=== PATIENT | female | born 1960 | race Caucasian/White ===

== ENCOUNTER 2016-09-04 13:49 | Emergency (ER) | payer BC ==
--- NOTE | 2016-09-04 15:11 | UC ---
Young Herrera Aidan, scribed for Ludivina Costello MD on 09/04/16 at 1444 . Ear Complaint HPI - HPI Summary HPI Summary: 55 y/o female presents to the Urgent Care with a complaint of acute, constant, aevhewln-uw-yiquoa (8/10) ear pressure/pain that began 6 weeks ago. The pain is not alleviated by Ibuprofen. Associated symptoms include sinus pressure and nasal congestion that is only slightly alleviated by Mucinex-D and Flonase. Roughly a month ago, she had a CT-scan that showed clear sinuses, but fluid in her ears. She was given an allergy shot, which actually aggravated her symptoms. Pt is allergic to Bactrim, Levaquin, and cephalosporin. She is actively using a Netti-Pot, flonase and azelastine. Pt had ENT care with Dr. Lyn and no longer wants to go to that office and she has an appointment with Dr. Hart on September 20, 2016. Pt is an established pt of Dr. Hart. - History of Current Complaint Chief Complaint: UC Stated Complaint: SINUS CONGESTION, AND EAR ACHE Time Seen by Provider: 09/04/16 14:25 Hx Obtained From: Patient Hx Last Menstrual Period: 55 y/o female ?: No Onset/Duration: Gradual Onset, Lasting Weeks, Still Present Severity Initially: Moderate Severity Currently: Moderate Pain Intensity: 8 - ear pain Pain Scale Used: 0-10 Numeric Aggravating Factors: Nothing - a flu shot aggravated her symptoms Alleviating Factors: Nothing Associated Signs/Symptoms: Positive: Hearing Loss, URI Symptoms Related History: Seasonal Allergies - Allergies/Home Medications Allergies/Adverse Reactions: Allergies Allergy/AdvReac Type Severity Reaction Status Date / Time Cephalosporins Allergy Joint Pain Verified 09/04/16 14:28 Levofloxacin [From Levaquin] Allergy Rash Verified 09/04/16 14:28 Sulfamethoxazole Allergy Rash Verified 09/04/16 14:28 w/Trimethoprim [From Bactrim] Home Medications: Home Medications Acetaminophen [Tylenol] 325 mg PO Q4H PRN 09/04/16 [History Confirmed 09/04/16] Azelastine 0.15% NASAL(NF) [Astepro 0.15% NASAL (NF)] 1 spray NASAL BID [History Confirmed 09/04/16] Escitalopram Oxalate [Lexapro] 20 mg PO DAILY 09/04/16 [History Confirmed ] Fluticasone NASAL SPRAY 50MCG* [Flonase NASAL SPRAY 50MCG*] 09/04/16 [History] Ibuprofen [Advil] 400 mg PO Q6H PRN 09/04/16 [History Confirmed 09/04/16] Pseudoephedrine-Guaifenesin [Mucinex D 60-600 mg] 1 tab PO BID 09/04/16 [ History Confirmed 09/04/16] PMH/Surg Hx/FS Hx/Imm Hx Respiratory History Of: Reports: Asthma - Surgical History Surgical History: Yes Surgery Procedure, Year, and Place: Ovary removed Other Surgical History: Tonsillectomy, Ovary removal - Family History Known Family History: Positive: Other - allergies - Social History Occupation: Employed Full-time Lives: Alone Alcohol Use: Rare Substance Use Type: None Smoking Status (MU): Never Smoked Tobacco - Immunization History Most Recent Influenza Vaccination: none Review of Systems Constitutional: Negative Skin: Negative Eyes: Negative ENT: Ear Ache, Other - nasal congestion, sinus pressure Respiratory: Negative Cardiovascular: Negative Gastrointestinal: Negative Genitourinary: Negative Motor: Negative Neurovascular: Negative Musculoskeletal: Negative Neurological: Negative Psychological: Negative All Other Systems Reviewed And Are Negative: Yes Physical Exam Triage Information Reviewed: Yes Appearance: Well-Appearing, Well-Nourished, Pain Distress Vital Signs: Initial Vital Signs Temp 99.9 F 09/04/16 14:30 Pulse 72 09/04/16 14:30 Resp 16 09/04/16 14:30 BP 153/109 09/04/16 14:30 Pulse Ox 98 09/04/16 14:30 Vital Signs Reviewed: Yes Eyes: Positive: Conjunctiva Clear ENT: Positive: Normal ENT inspection, Pharynx normal. Negative: TMs normal - fluid behind both ear drums Neck: Positive: Supple Respiratory: Positive: Lungs clear, Normal breath sounds, No respiratory distress Cardiovascular: Positive: RRR, No Murmur, Pulses Normal, Brisk Capillary Refill Musculoskeletal: Positive: Strength Intact, ROM Intact Neurological: Positive: Alert, Muscle Tone Normal Psychological Exam: Normal Skin Exam: Normal Ear Complaint Course/Dx - Course Course Of Treatment: 55 y/o female presents with acute, constant, moderate-to- severe (8/10) ear pressure/pain that began 6 weeks ago. The pain is not alleviated by Ibuprofen. Associated symptoms include sinus pressure and nasal congestion that is only slightly alleviated by Mucinex-D and Flonase. Roughly a month ago, she had a CT-scan that showed clear sinuses, but fluid in her ears. She was given allergy shots, which actually aggravated her symptoms. Pt is allergic to Bactrim, Levaquin, and cephalosporin. She is actively using a Netti- Pot. Dr. Costello will give a taper of steroids and trial of the antibiotic until she can be seen by Dr. Hart. - Differential Dx/Diagnosis Differential Diagnosis/HQI/PQRI: Otitis Externa, Otitis Media, URI, Other - sinusitis Provider Diagnoses: sinusitis Discharge - Discharge Plan Condition: Stable Disposition: HOME Prescriptions: Amoxicillin/Clavulanate TAB* [Augmentin TAB 875*] 875 mg PO BID #28 tab predniSONE TAB* [Deltasone TAB*] 10 mg PO SEE INSTRUCTIONS #30 tab Patient Education Materials: Sinusitis (ED) Additional Instructions: Dr. Costello arranged a sooner appointment with Dr. Hart, where you have already established you want your ENT care. Your appointment is now September 15Sunday at 12:45pm. The documentation as recorded by the Young berman Aidan accurately reflects the service I personally performed and the decisions made by , Ludivina Costello MD.
[2016-09-04 15:14] VITALS: BP 153/79
== END 2016-09-04 15:06 | disposition home or self-care (01) ==
LOC: UCEAST 13:49 → MERGE 13:49 → UCEAST 15:06
DX: J32.9 Chronic sinusitis, unspecified (principal); Z88.1 Allergy status to other antibiotic agents; Z88.2 Allergy status to sulfonamides; Z88.8 Allergy status to other drugs, medicaments and biological substances
CPT/HCPCS: 99202; G0463

== ENCOUNTER 2016-11-12 21:14 | Emergency (ER) | payer BC ==
[2016-11-12 21:31] VITALS: BP 138/76
--- NOTE | 2016-11-12 22:33 | UC ---
Respiratory Complaint HPI - HPI Summary HPI Summary: The patient comes in today for: 1. Sinus congestion: Onset: 6 weeks of sinus congestion. Palliative/provocative: Nebulizer helps. Rubber chips, Quality: Pressure. Region: Front/forehead. Severity: 01/22 Time: Constant. Associated symptoms: Rhinitis: white mucous. Upper tooth pain: None. Fevers: None Cough: "a little bit." non-productive. Itchy eyes. The patient wants antibiotics and prednisone. * - History of Current Complaint Chief Complaint: UCRespiratory Stated Complaint: SINUS CONGESTION Time Seen by Provider: 11/12/16 22:27 Hx Obtained From: Patient Hx Last Menstrual Period: IUD - Allergies/Home Medications Allergies/Adverse Reactions: Allergies Allergy/AdvReac Type Severity Reaction Status Date / Time Levofloxacin [From Levaquin] Allergy Intermediate Rash Verified 11/12/16 21:31 Sulfamethoxazole Allergy Intermediate Rash Verified 11/12/16 21:31 w/Trimethoprim [From Bactrim] Nitrofurantoin Allergy Numbness Verified 11/12/16 21:31 [From Macrobid] And Tingling Cephalosporins AdvReac Severe swollen Verified 11/12/16 21:31 joints PMH/Surg Hx/FS Hx/Imm Hx Previously Healthy: Yes Endocrine History Of: Reports: Thyroid Disease Denies: Diabetes, Hyperthyroidism, Hypothyroidism, Dyslipidemia Cardiovascular History Of: Denies: Cardiac Disorders, Hypertension, Pacemaker/ICD, Myocardial Infarction , Congestive Heart Failure, Atrial Fibrillation, Deep Vein Thrombosis, Bleeding Disorders Respiratory History Of: Reports: Asthma - cold induced Denies: COPD, Bronchitis, Pneumonia, Pulmonary Embolism GI/ History Of: Denies: Gastroesophageal Reflux, Ulcer, Gastrointestinal Bleed, Gall Bladder Disease, Kidney Stones, Diverticulitis, Renal Disease, Urosepsis Neurological History Of: Denies: TIA, CVA, Dementia, Seizures, Migraine Psychological History Of: Reports: Anxiety Denies: Depression, Bipolar Disorder, Schizophrenia, Post Traumatic Stress Disorder Cancer History Of: Denies: Lung Cancer, Colorectal Cancer, Breast Cancer, Prostate Cancer, Cervical Cancer - Surgical History Surgical History: Yes Surgery Procedure, Year, and Place: ovary removed d/t cyst. vericose vein surgery on left leg., TONSILLECTOMY, ADENOIDECTOMY Other Surgical History: Tonsillectomy, Ovary removal - Family History Known Family History: Positive: Cardiac Disease, Respiratory Disease - mother with COPD, Other - allergies - Social History Occupation: Employed Full-time Alcohol Use: Rare Substance Use Type: None Smoking Status (MU): Never Smoked Tobacco - Immunization History Most Recent Influenza Vaccination: none Review of Systems Constitutional: Negative Skin: Negative Eyes: Negative ENT: Nasal Discharge Respiratory: Cough Cardiovascular: Negative Gastrointestinal: Negative Genitourinary: Negative All Other Systems Reviewed And Are Negative: Yes Physical Exam Triage Information Reviewed: Yes Appearance: Well-Appearing, No Pain Distress, Well-Nourished Vital Signs: Initial Vital Signs Temp 96.8 F 11/12/16 21:27 Pulse 74 11/12/16 21:27 Resp 18 11/12/16 21:27 BP 138/76 11/12/16 21:27 Pulse Ox 99 11/12/16 21:27 Vital Signs Reviewed: Yes Eyes: Positive: Conjunctiva Clear. Negative: Discharge ENT: Positive: Hearing grossly normal, Other: - PE tube seen in left ear canal.. Negative: Pharyngeal erythema, Nasal congestion, Nasal drainage, TM bulging, TM dull, TM red, Tonsillar swelling, Tonsillar exudate Dental: Negative: Gross Decay/Caries @, Dental Fracture @ Neck: Positive: Supple, Nontender, No Lymphadenopathy. Negative: Nuchal Rigidity Respiratory: Positive: Chest non-tender, Lungs clear, No respiratory distress, No accessory muscle use. Negative: Crackles, Wheezing Cardiovascular: Positive: RRR, No Murmur Abdomen Description: Positive: Nontender, No Organomegaly, Soft. Negative: Distended, Guarding Musculoskeletal: Positive: Strength Intact, ROM Intact, No Edema Neurological: Positive: Alert, Muscle Tone Normal Psychological: Positive: Age Appropriate Behavior, Consolable Skin: Negative: rashes, breakdown UC Diagnostic Evaluation - Laboratory O2 Sat by Pulse Oximetry: 99 Respiratory Course/Dx - Course Course Of Treatment: Patient was told of her treatment options. Considering that she has seen the [facility] and Dr. Hart and not been satisfied with them, she is looking into [facility]. She was encouraged to do so. She wants antibiotics and steroids for this treatment which she states has helped in the past. - Differential Dx/Diagnosis Provider Diagnoses: high blood pressure. sinusitis Discharge - Discharge Plan Condition: Stable Disposition: HOME Patient Education Materials: Sinusitis (ED), Hypertension (ED) Referrals: Howson,Kinjal F, MD [Primary Care Provider] - 1 Week (Please see your primary care provider in a week to see how well you are doing. If you get worse, please be seen sooner in the ER or through us.) Additional Instructions: See your primary care provider next week to check your blood pressure.
[2016-11-12] MEDS ORDERED: Amoxicillin/Clavulanate TAB* 875 MG PO ONE (22:41)
[2016-11-12] MEDS ORDERED: predniSONE TAB* 20 MG PO ONE (22:42)
== END 2016-11-12 22:56 | disposition home or self-care (01) ==
LOC: UCEAST 21:14
DX: J32.9 Chronic sinusitis, unspecified (principal); R03.0 Elevated blood-pressure reading, without diagnosis of hypertension; E07.9 Disorder of thyroid, unspecified; J45.909 Unspecified asthma, uncomplicated; F41.9 Anxiety disorder, unspecified; Z88.1 Allergy status to other antibiotic agents; Z88.2 Allergy status to sulfonamides
CPT/HCPCS: 99212; A9270-GY; G0463; J7512

== ENCOUNTER 2017-02-14 12:49 | Emergency (ER) | payer BC ==
[2017-02-14 13:55] VITALS: BP 153/85
--- NOTE | 2017-02-14 14:43 | UC ---
Throat Pain/Nasal Bobby HPI - HPI Summary HPI Summary: 56 year old female with a history of tubes in her ear presents with complains of sinus congestion and left ear pain. - History of Current Complaint Chief Complaint: UCRespiratory Stated Complaint: SINUS ISSUE Time Seen by Provider: 02/14/17 14:39 Hx Last Menstrual Period: IUD - Allergies/Home Medications Allergies/Adverse Reactions: Allergies Allergy/AdvReac Type Severity Reaction Status Date / Time Levofloxacin [From Levaquin] Allergy Intermediate Rash Verified 02/14/17 13:56 Sulfamethoxazole Allergy Intermediate Rash Verified 02/14/17 13:56 w/Trimethoprim [From Bactrim] Nitrofurantoin Allergy Numbness Verified 02/14/17 13:56 [From Macrobid] And Tingling Cephalosporins AdvReac Severe swollen Verified 02/14/17 13:56 joints Home Medications: Home Medications Azelastine/Fluticasone ELLIE(NF [Dymista(NF)] 2 spray BOTH NARES DAILY 02/14/17 [ History Confirmed 02/14/17] Mometasone NASAL (NF) [Nasonex (NF)] 2 spray BOTH NARES DAILY 02/14/17 [History Confirmed 02/14/17] PMH/Surg Hx/FS Hx/Imm Hx - Surgical History Surgical History: Yes Surgery Procedure, Year, and Place: ovary removed d/t cyst. vericose vein surgery on left leg., TONSILLECTOMY, ADENOIDECTOMY, ear tubes 2016 Other Surgical History: Tonsillectomy, Ovary removal - Family History Known Family History: Positive: Cardiac Disease, Respiratory Disease - mother with COPD, Other - allergies - Social History Alcohol Use: Rare Substance Use Type: None Smoking Status (MU): Never Smoked Tobacco - Immunization History Most Recent Influenza Vaccination: none Review of Systems Constitutional: Negative Skin: Negative Eyes: Negative ENT: Sore Throat, Ear Ache, Nasal Discharge, Sinus Congestion, Sinus Pain/ Tenderness Respiratory: Negative Cardiovascular: Negative Gastrointestinal: Negative Genitourinary: Negative Motor: Negative Neurovascular: Negative Musculoskeletal: Negative Neurological: Negative Psychological: Negative All Other Systems Reviewed And Are Negative: Yes Physical Exam Triage Information Reviewed: Yes Vital Signs: Initial Vital Signs Temp 37.4 C 02/14/17 13:51 Pulse 71 02/14/17 13:51 Resp 16 02/14/17 13:51 BP 153/85 02/14/17 13:51 Pulse Ox 99 02/14/17 13:51 Eye Exam: Normal ENT Exam: Normal ENT: Positive: Pharyngeal erythema, Nasal congestion, Nasal drainage, Other: - left external ear canal erythema Dental Exam: Normal Neck exam: Normal Neck: Positive: 1 Respiratory Exam: Normal Cardiovascular Exam: Normal Abdominal Exam: Normal Musculoskeletal Exam: Normal Neurological Exam: Normal Psychological Exam: Normal Skin Exam: Normal Throat Pain/Nasal Course/Dx - Differential Dx/Diagnosis Provider Diagnoses: left ear pain. sinusitis Discharge - Discharge Plan Condition: Stable Disposition: HOME Prescriptions: Amoxicillin/Clavulanate TAB* [Augmentin TAB 875*] 875 mg PO BID #20 tab Methylprednisolone [Medrol Dosepak 4 MG*] 4 mg PO .SEE FELY INSTRUCTION #21 tab Neomyc/Polym/HC 1% OTIC SUSP* [Cortisporin Otic Susp 1%*] 4 drop LEFT EAR QID # 1 btl Patient Education Materials: Sinusitis (ED) Referrals: Kinjal Rose MD [Primary Care Provider] - If Needed
== END 2017-02-14 14:50 | disposition home or self-care (01) ==
LOC: UCEAST 12:49
DX: H92.02 Otalgia, left ear (principal); J32.9 Chronic sinusitis, unspecified
CPT/HCPCS: 99212; G0463

== ENCOUNTER 2017-05-02 17:23 | Emergency (ER) | payer BC ==
[2017-05-02 17:35] VITALS: BP 141/90
--- NOTE | 2017-05-02 18:17 | UC ---
Complaint Female HPI - HPI Summary HPI Summary: Patient presents to the with CC of frequency, urgency upon urination. Denies any dark colored, cloudy urine. Denies flank pain. Denies diaphoresis and chills. Denies known fever. No abnormal vaginal discharge reported. Otherwise healthy. Notes to symptoms starting last night. She also states she has some pain in the lateral left leg. Hx of varicose veins. Pain is discretely located over the area of a confluence of VV and radiates to the posterior knee. Mild amount of pain to the right upper leg as well. Has been on her feet more which could be contributory. Varicose vein surgery a few years ago. - History Of Current Complaint Chief Complaint: UCLowerExtremity Stated Complaint: UTI Time Seen by Provider: 05/02/17 17:38 Hx Obtained From: Patient Hx Last Menstrual Period: IUD ?: No Onset/Duration: Sudden Onset Timing: Constant Severity Initially: Mild Severity Currently: Mild Pain Intensity: 2 Pain Scale Used: 0-10 Numeric Character: Cramping Aggravating Factor(s): Movement Associated Signs And Symptoms: Negative: Fever, Vaginal Bleeding/Discharge, Vaginal Discharge, Vomiting(# Of Episodes =) - Risk Factors Ectopic Risk Factor: Negative Ovarian Torsion Risk Factor: Negative - Allergies/Home Medications Allergies/Adverse Reactions: Allergies Allergy/AdvReac Type Severity Reaction Status Date / Time Levofloxacin [From Levaquin] Allergy Intermediate Rash Verified 05/02/17 17:35 Sulfamethoxazole Allergy Intermediate Rash Verified 05/02/17 17:35 w/Trimethoprim [From Bactrim] Nitrofurantoin Allergy Numbness Verified 05/02/17 17:35 [From Macrobid] And Tingling Cephalosporins AdvReac Severe swollen Verified 05/02/17 17:35 joints PMH/Surg Hx/FS Hx/Imm Hx Previously Healthy: Yes - Surgical History Surgical History: Yes Surgery Procedure, Year, and Place: ovary removed d/t cyst. vericose vein surgery on left leg., TONSILLECTOMY, ADENOIDECTOMY, ear tubes 2015 Other Surgical History: Tonsillectomy, Ovary removal - Family History Known Family History: Positive: Cardiac Disease, Respiratory Disease - mother with COPD, Other - allergies - Social History Occupation: Employed Full-time Lives: With Family Alcohol Use: Rare Substance Use Type: None Smoking Status (MU): Never Smoked Tobacco - Immunization History Most Recent Influenza Vaccination: none Review of Systems Constitutional: Negative Skin: Negative Respiratory: Negative Cardiovascular: Negative Genitourinary: Dysuria, Frequency, Urgency Motor: Negative Neurovascular: Other - left varicose vein pain to the lateral leg Neurological: Negative Psychological: Negative Is Patient Immunocompromised?: No All Other Systems Reviewed And Are Negative: Yes Physical Exam Triage Information Reviewed: Yes Appearance: Well-Appearing, Well-Nourished Vital Signs: Initial Vital Signs Temp 99.2 F 05/02/17 17:32 Pulse 69 05/02/17 17:32 Resp 18 05/02/17 17:32 BP 141/90 05/02/17 17:32 Pulse Ox 99 05/02/17 17:32 Vital Signs Reviewed: Yes Eye Exam: Normal Eyes: Positive: Conjunctiva Clear Neck exam: Normal Neck: Positive: Supple, No Lymphadenopathy Respiratory Exam: Normal Respiratory: Positive: Chest non-tender, Lungs clear Cardiovascular Exam: Normal Cardiovascular: Positive: RRR Musculoskeletal: Positive: Strength Intact Neurological Exam: Normal Neurological: Positive: Alert Psychological Exam: Normal Psychological: Positive: Normal Response To Family Skin Exam: Normal Complaint Female Dx - Course Course Of Treatment: Patient presents to the UC with urinary complaint and left lower leg pain. UA shows +2 leuks and RBC. Left leg with varicose veins. Pain on light palpation over the area of concern. Unable r/o DVT. She is sent to the ED for further evaluation and agrees to go as we do not have US here in . She is given Monurol for UTI and Pyridium for comfort. - Differential Dx/Diagnosis Differential Diagnosis/HQI/PQRI: Urinary Tract Infection Provider Diagnoses: UTI, leg pain Discharge - Discharge Plan Condition: Stable Disposition: HOME Prescriptions: Fosfomycin(NF) [Monurol(NF)] 5.631 gm PO ONCE #1 irene Phenazopyridine TAB* [Pyridium 100 mg TAB*] 100 mg PO TID #12 tab Patient Education Materials: Urinary Tract Infection in Women (ED) Referrals: Kinjal Rose MD [Primary Care Provider] - Additional Instructions: Dx. Urinary Tract Infection Drink plenty of fluids. Supplement with cranberry or mercado juice. You may also take an over the counter cranberry supplement. If you have any questions about this, you may ask your pharmacist. If your symptoms have not improved in 1-2 days, if you develop fever, sweats or chills, please go to your emergency room, or call your PCP. Antibiotics were prescribed to you. Please take as directed. Supplement with over the counter probiotics on the opposite schedule of your antibiotic to prevent secondary infections. Do not take together as they may counteract each other. Pyridium: This medication is used to treat pain, burning, increased urination, and increased urge to urinate. These symptoms are usually caused by infection, injury, surgery, catheter, or other conditions that irritate the lower urinary tract. Pyridium will treat the symptoms of a urinary tract infection, but this medication does not treat the actual infection. Take the antibiotic that your doctor prescribes to treat your infection. Pyridium will most likely darken the color of your urine to an orange or red color. This is a normal effect and is not cause for alarm unless you have other symptoms such as pale or yellowed skin, fever, stomach pain, nausea, and vomiting. Darkened urine may also cause stains to your underwear, which may or may not be removed by laundering. It can also permanently stain soft contact lenses, and you should not wear them while taking this medicine. GO DIRECTLY TO THE ED FOR FURTHER EVALUATION OF THE LEFT LEG.
== END 2017-05-02 18:35 | disposition home or self-care (01) ==
LOC: UCEAST 17:23
DX: N39.0 Urinary tract infection, site not specified (principal); M79.662 Pain in left lower leg; Z88.1 Allergy status to other antibiotic agents; Z88.0 Allergy status to penicillin; Z88.2 Allergy status to sulfonamides; Z88.8 Allergy status to other drugs, medicaments and biological substances
CPT/HCPCS: 81003; 87086; 99212; G0463

== ENCOUNTER 2017-05-02 19:21 | Emergency (ER) | payer BC ==
--- NOTE | 2017-05-02 20:53 | RAD ---
Indication: Left leg edema. Duplex Doppler sonography of the deep venous system of the left lower extremity deep venous system was performed. Bilaterally the common femoral veins appear patent and compressible. Left proximal greater saphenous vein, proximal deep femoral vein, femoral vein, popliteal vein, posterior tibial veins and peroneal veins appear patent and compressible. IMPRESSION: NO EVIDENCE OF DEEP VENOUS THROMBOSIS IS IDENTIFIED.
--- NOTE | 2017-05-02 21:02 | ED ---
Lower Extremity - HPI Summary HPI Summary: 56F presents with left leg pain for week. Pain is located on lateral aspect below left knee over veins located there. She denies any injury. She denies any history of blood clots. She is not a smoker. She has hx of varicose veins. She has been on her feet more. Varicose vein surgery a few years ago in same location. She denies any fever or rash. - History of Current Complaint Chief Complaint: EDExtremityLower Stated Complaint: LT LEG PAIN Time Seen by Provider: 05/02/17 20:38 Hx Last Menstrual Period: IUD Pain Intensity: 8 - Allergies/Home Medications Allergies/Adverse Reactions: Allergies Allergy/AdvReac Type Severity Reaction Status Date / Time Levofloxacin [From Levaquin] Allergy Intermediate Rash Verified 05/02/17 17:35 Sulfamethoxazole Allergy Intermediate Rash Verified 05/02/17 17:35 w/Trimethoprim [From Bactrim] Nitrofurantoin Allergy Numbness Verified 05/02/17 17:35 [From Macrobid] And Tingling Cephalosporins AdvReac Severe swollen Verified 05/02/17 17:35 joints PMH/Surg Hx/FS Hx/Imm Hx Endocrine/Hematology History: Reports: Hx Thyroid Disease - hypo Denies: Hx Diabetes Cardiovascular History: Denies: Hx Congestive Heart Failure, Hx Deep Vein Thrombosis, Hx Hypertension , Hx Myocardial Infarction, Hx Pacemaker/ICD Respiratory History: Reports: Hx Asthma Denies: Hx Chronic Obstructive Pulmonary Disease (COPD), Hx Lung Cancer, Hx Pneumonia, Hx Pulmonary Embolism GI History: Denies: Hx Gall Bladder Disease, Hx Gastrointestinal Bleed, Hx Ulcer, Hx Urosepsis History: Denies: Hx Kidney Stones, Hx Renal Disease Neurological History: Denies: Hx Dementia, Hx Migraine, Hx Seizures, Hx Transient Ischemic Attacks (TIA) Psychiatric History: Reports: Hx Anxiety Denies: Hx Depression, Hx Schizophrenia, Hx Bipolar Disorder - Cancer History Hx Chemotherapy: No Hx Radiation Therapy: No - Surgical History Surgery Procedure, Year, and Place: ovary removed d/t cyst. vericose vein surgery on left leg., TONSILLECTOMY, ADENOIDECTOMY, ear tubes 2016 Infectious Disease History: No Infectious Disease History: Denies: Hx Clostridium Difficile, Hx Hepatitis, Hx Human Immunodeficiency Virus (HIV), Hx of Known/Suspected MRSA, Hx Shingles, Hx Tuberculosis, Hx Known/ Suspected VRE, Hx Known/Suspected VRSA, History Other Infectious Disease, Traveled Outside the [place] in Last 30 Days - Family History Known Family History: Positive: Cardiac Disease, Respiratory Disease - mother with COPD, Other - allergies - Social History Alcohol Use: Rare Substance Use Type: Reports: None Hx Tobacco Use: No Smoking Status (MU): Never Smoked Tobacco Review of Systems Negative: Fever Negative: Chest Pain Negative: Shortness Of Breath Positive: Myalgia - left calf pain All Other Systems Reviewed And Are Negative: Yes Physical Exam Triage Information Reviewed: Yes Vital Signs On Initial Exam: Initial Vitals Temp Pulse Resp BP Pulse Ox 98.6 F 62 18 146/100 98 05/02/17 19:55 05/02/17 19:55 05/02/17 19:55 05/02/17 19:55 05/02/17 19:55 Vital Signs Reviewed: Yes Appearance: Positive: Well-Appearing Skin: Positive: Warm, Dry Head/Face: Positive: Normal Head/Face Inspection Eyes: Positive: Normal, Conjunctiva Clear Respiratory/Lung Sounds: Positive: Clear to Auscultation, Breath Sounds Present Cardiovascular: Positive: Normal, RRR Musculoskeletal: Positive: Strength/ROM Intact - left leg, Other - good pulses, tenderness across lateral aspect of left calf over varicose vein. Negative: Cat Sign Left, Edema Left Neurological: Positive: Normal Psychiatric: Positive: Normal - [place] Coma Scale Coma Scale Total: 15 Diagnostics - Vital Signs Vital Signs Temp Pulse Resp BP Pulse Ox 05/02/17 19:55 98.6 F 62 18 146/100 98 - Laboratory Lab Statement: Any lab studies that have been ordered have been reviewed, and results considered in the medical decision making process. - Ultrasound No standard instances Ultrasound Interpretation: No Acute Changes Ultrasound Interpretation Completed By: Radiologist Lower Extremity Course/Dx - Course Course Of Treatment: 56F presents with left leg pain for week. Pain is located on lateral aspect below left knee over veins located there. She denies any injury. She denies any history of blood clots. She is not a smoker. She has hx of varicose veins. She has been on her feet more. Varicose vein surgery a few years ago in same location. She denies any fever or rash. on exam has tenderness over varciose veins, neg cat test. good pulses, u/s normal. will have place heat on area and try ibuprofen. patient understands and agrees with plan. - Diagnoses Differential Diagnosis/HQI/PQRI: Positive: DVT, Phlebitis, Sprain Provider Diagnoses: Left leg pain Discharge - Discharge Plan Condition: Good Disposition: HOME Referrals: Kinjal Rose MD [Primary Care Provider] - Additional Instructions: Take Tylenol or ibuprofen every [address] heat on the area Use compression socks Follow up with primary within 5 days Return to ED if develop any new or worsening symptoms
[2017-05-02 21:35] VITALS: BP 162/88
== END 2017-05-02 21:34 | disposition home or self-care (01) ==
LOC: ED 19:21
DX: M79.605 Pain in left leg (principal); M79.1 Myalgia
CPT/HCPCS: 99281

== ENCOUNTER 2017-12-01 20:10 | Emergency (ER) | payer BC ==
[2017-12-01 20:45] VITALS: BP 139/84
--- NOTE | 2017-12-01 21:03 | UC ---
Throat Pain/Nasal Bobby HPI - HPI Summary HPI Summary: C/O 2 weeks of congestion. Now with sinus pain. H/O allergies and asthma. Coughing. - History of Current Complaint Chief Complaint: UCRespiratory Stated Complaint: COUGH,CONGESTION Hx Obtained From: Patient Hx Last Menstrual Period: 2011 ?: No Onset/Duration: Gradual Onset, Lasting Weeks - 2, Worse Since - last night Severity: Moderate Pain Intensity: 6 Cough: Productive Associated Signs & Symptoms: Positive: Wheezing, Sinus Discomfort, Nasal Discharge Related History: Seasonal Allergies - Allergies/Home Medications Allergies/Adverse Reactions: Allergies Allergy/AdvReac Type Severity Reaction Status Date / Time Cephalosporins Allergy Severe Swelling Verified 12/01/17 21:07 levofloxacin [From Levaquin] Allergy Rash Verified 12/01/17 21:07 nitrofurantoin Allergy Numbness Verified 12/01/17 21:07 And Tingling sulfamethoxazole Allergy Rash Verified 12/01/17 21:07 [From Bactrim] trimethoprim [From Bactrim] Allergy Rash Verified 12/01/17 21:07 Home Medications: Home Medications Beclomethasone Dipropionate [Qnasl] 80 mcg NA DAILY 12/01/17 [History Confirmed 12/01/17] Levocetirizine Dihydrochloride [Xyzal] 5 mg PO QPM 12/01/17 [History Confirmed 12/01/17] Montelukast Sodium TAB* [Singulair 5 mg TAB*] 5 mg PO QAM 12/01/17 [History Confirmed 12/01/17] Sertraline* [Zoloft*] 50 mg PO QPM 12/01/17 [History Confirmed 12/01/17] PMH/Surg Hx/FS Hx/Imm Hx Endocrine History: Hypothyroidism Respiratory History: Asthma Psychological History: Anxiety - Surgical History Surgical History: Yes Surgery Procedure, Year, and Place: ovary removed d/t cyst. varicose vein surgery on left leg., TONSILLECTOMY, ADENOIDECTOMY, BILAT EAR TUBES 2015 (STILL IN PLACE), D&C Other Surgical History: Tonsillectomy, Ovary removal - Family History Known Family History: Positive: Cardiac Disease, Respiratory Disease - mother with COPD, Other - allergies - Social History Occupation: Employed Full-time Lives: With Family Alcohol Use: Rare Substance Use Type: None Smoking Status (MU): Never Smoked Tobacco Have You Smoked in the Last Year: No - Immunization History Most Recent Influenza Vaccination: none Review of Systems Constitutional: Chills ENT: Sore Throat, Sinus Pain/Tenderness Respiratory: Shortness Of Breath, Cough Is Patient Immunocompromised?: No All Other Systems Reviewed And Are Negative: Yes Physical Exam Triage Information Reviewed: Yes Appearance: No Pain Distress, Well-Nourished, Ill-Appearing Vital Signs: Initial Vital Signs Temp 98.1 F 12/01/17 20:38 Pulse 63 12/01/17 20:38 Resp 17 12/01/17 20:38 BP 139/84 12/01/17 20:38 Pulse Ox 99 12/01/17 20:38 Vital Signs Reviewed: Yes Eyes: Positive: Conjunctiva Clear ENT: Positive: Nasal congestion - with allergic changes, TMs normal - with tubes in place., Sinus tenderness Neck exam: Normal Respiratory: Positive: Lungs clear, Wheezing - just with coughing. Cardiovascular Exam: Normal Musculoskeletal Exam: Normal Neurological Exam: Normal Psychological Exam: Normal Skin Exam: Normal Throat Pain/Nasal Course/Dx - Differential Dx/Diagnosis Differential Diagnosis/HQI/PQRI: Pharyngitis, Sinusitis, URI Provider Diagnoses: Allergic rhinitis. Acute sinusitis. Asthma with acute exacerbation. Discharge - Sign-Out/Discharge Documenting (check all that apply): Discharge/Admit/Transfer - Discharge Plan Condition: Stable Disposition: HOME Prescriptions: Amoxicillin/Clavulanate TAB* [Augmentin TAB 875*] 875 mg PO BID #20 tab Fluconazole [Fluconazole 150 mg tab] 150 mg PO ONCE #1 tablet predniSONE TAB* [Deltasone TAB*] 20 mg PO DAILY #18 tab Patient Education Materials: Sinusitis (ED), Amoxicillin/Clavulanate Potassium (By mouth), Bronchospasm (ED), Prednisone (By mouth) Referrals: Kinjal Rose MD [Primary Care Provider] - Additional Instructions: imodium can help with the diarrhea from the augmentin. Do the sinus rinse before using the Qnasl - Billing Disposition and Condition Condition: STABLE Disposition: HOME
[2017-12-01] MEDS ORDERED: Amoxicillin/Clavulanate TAB* 875 MG PO ONE (21:15)
== END 2017-12-01 21:42 | disposition home or self-care (01) ==
LOC: UCCORT 20:10
DX: J30.9 Allergic rhinitis, unspecified (principal); J01.90 Acute sinusitis, unspecified; J45.901 Unspecified asthma with (acute) exacerbation; Z88.1 Allergy status to other antibiotic agents; F41.9 Anxiety disorder, unspecified
CPT/HCPCS: 99212; A9270-GY; G0463

== ENCOUNTER 2017-12-14 16:26 | Emergency (ER) | payer BC ==
[2017-12-14 16:37] VITALS: BP 155/75
[2017-12-14] MEDS ORDERED: Tetan/Diph/Pertus SYR(Tdap)* 0.5 ML SYR(BOOSTRIX) use SYR IM ONE (16:52)
--- NOTE | 2017-12-14 16:56 | UC ---
Coreen Herrera Elizabeth, scribed for Magnus Sun MD on 12/14/17 at 1652 . Laceration HPI - HPI Summary HPI Summary: This patient is a 57 year old F presenting to [facility] with a chief complaint of a 6 cm laceration on her right foot since 5 days ago. The patient reports that the medial aspect of her right malleolus was cut by her dogs leash when her dog pulled on it. The wound has been healing but the patient reports that recently it has become more swollen, erythematous, and painful. The patient rates the pain 5/10 in severity. Symptoms aggravated by nothing. Symptoms alleviated by nothing. The patient came to [facility] to see if there is any infection. The patient cannot recall when she had her last tetanus shot. - History Of Current Complaint Chief Complaint: UCLowerExtremity Stated Complaint: FOOT LACERATION Time Seen by Provider: 12/14/17 16:42 Hx Obtained From: Patient Hx Last Menstrual Period: 2011 Laceration Location: Foot - right foot Mechanism Of Injury: Sharp Trauma - from dog leash Onset/Duration: Sudden Onset, Lasting Days - 5 days, Still Present, Worse Since - 1 day ago Severity: Mild Pain Intensity: 5 Pain Scale Used: 0-10 Numeric Aggravating Factors: Nothing - Allergies/Home Medications Allergies/Adverse Reactions: Allergies Allergy/AdvReac Type Severity Reaction Status Date / Time Cephalosporins Allergy Severe Swelling Verified 12/14/17 16:37 levofloxacin [From Levaquin] Allergy Rash Verified 12/14/17 16:37 nitrofurantoin Allergy Numbness Verified 12/14/17 16:37 And Tingling sulfamethoxazole Allergy Rash Verified 12/14/17 16:37 [From Bactrim] trimethoprim [From Bactrim] Allergy Rash Verified 12/14/17 16:37 PMH/Surg Hx/FS Hx/Imm Hx Previously Healthy: Yes - Surgical History Surgical History: Yes Surgery Procedure, Year, and Place: ovary removed d/t cyst. varicose vein surgery on left leg., TONSILLECTOMY, ADENOIDECTOMY, BILAT EAR TUBES 2015 (STILL IN PLACE), D&C Other Surgical History: Tonsillectomy, Ovary removal - Family History Known Family History: Positive: Cardiac Disease, Respiratory Disease - mother with COPD, Other - allergies - Social History Alcohol Use: Rare Substance Use Type: None Smoking Status (MU): Never Smoked Tobacco Have You Smoked in the Last Year: No - Immunization History Most Recent Influenza Vaccination: none Review of Systems Skin: Other - 6 cm laceration to right medial malleolus with erythema ENT: Negative - NEGATIVE EPISTAXIS Cardiovascular: Chest Pain - NEGATIVE CHEST PAIN Musculoskeletal: Other: - right food pain All Other Systems Reviewed And Are Negative: Yes Physical Exam - Summary Physical Exam Summary: VITAL SIGNS: Reviewed. GENERAL: Patient is a well-developed and nourished FEMALE who is lying comfortable in the stretcher. Patient is not in any acute respiratory distress. HEAD AND FACE: Normocephalic EYES: PERRLA, EOMI x 2. EARS: Hearing grossly intact. MOUTH: Oropharynx within normal limits. NECK: Supple, trachea is midline, no adenopathy, no JVD, no carotid bruit. CHEST: Symmetric, no tenderness at palpation LUNGS: Clear to auscultation bilaterally. No wheezing or crackles. CVS: Regular rate and rhythm, S1 and S2 present, no murmurs or gallops appreciated. ABDOMEN: Soft, non-tender. Bowel sounds are normal. No abdominal abnormal pulsations. EXTREMITIES: Full ROM in all major joints, no edema, no cyanosis or clubbing. Healing wound in the medial aspect of the right malleolus without any discharge but with erythema and tenderness NEURO: Alert and oriented x 3. No acute neurological deficits. Speech is normal and follows commands. SKIN: Dry and warm Triage Information Reviewed: Yes Vital Signs: Initial Vital Signs Temp 98.8 F 12/14/17 16:31 Pulse 80 12/14/17 16:31 Resp 18 12/14/17 16:31 BP 155/75 12/14/17 16:31 Pulse Ox 96 12/14/17 16:31 Vital Signs Reviewed: Yes Laceration Course/Dx - Course/Dx Course Of Treatment: This patient is a 57-year-old female who presents to the urgent care with a chief complaint of having a healing wound in the left foot / ankle. Disposition the patient is having slight cellulitis. She will be given Augmentin since the patient is able to take this medication. The patient has multiple allergies but she is able to take Augmentin. She also was given a tetanus booster. I discussed all the findings and test results with the patient and Patient was instructed to return to the or go to the ED if develops any fever, increase sore throat unable to swallow, drooling, unable to open their mouth, or any other symptoms. The patient understands and agrees. Plan of care was discussed with the patient and understands and agrees. All questions were answered at patient satisfaction. There were no further complaints or concerns. Patient is A + O X 3. hemodynamically stable. - Differential Dx - Laceration/Wound Provider Diagnoses: cellulitis Discharge - Sign-Out/Discharge Documenting (check all that apply): Discharge/Admit/Transfer - Discharge Plan Condition: Stable Disposition: HOME Prescriptions: Amoxicillin/Clavulanate TAB* [Augmentin TAB 875*] 875 mg PO BID #14 tab Patient Education Materials: Cellulitis (ED) Referrals: Kinjal Rose MD [Primary Care Provider] - Additional Instructions: Take medications as instructed Increase your fluid intake Return to the if symptoms worsen - Billing Disposition and Condition Condition: STABLE Disposition: HOME The documentation as recorded by the Coreen berman Elizabeth accurately reflects the service I personally performed and the decisions made by , Magnus Sun MD.
== END 2017-12-14 16:55 | disposition home or self-care (01) ==
LOC: UCEAST 16:26
DX: S91.311A Laceration without foreign body, right foot, initial encounter (principal); L03.116 Cellulitis of left lower limb; W45.8XXA Other foreign body or object entering through skin, initial encounter; Y93.9 Activity, unspecified; Y92.9 Unspecified place or not applicable; Z23 Encounter for immunization
CPT/HCPCS: 90471; 90715; 99212; G0463

== ENCOUNTER 2018-02-12 18:31 | Emergency (ER) | payer BC ==
--- OUTSIDE RECORDS SUMMARY | 2018-02-12 18:45 | XMS REPORT ---
:1960 External Reference #:[id number] Author Organization [facility] Address [address] [place] [address] Phone [phone] Care Team Providers Name Role Phone Kinjal Rose Primary Care Physician Unavailable Payers Type Date Identification Numbers Payment Provider Subscriber Commercial Effective: Policy Number: [employer] BC/BS Anabela Barragan 2012 [id number] [facility] PayID: [id number] [address] [address] [place] [address] Problems Description No Active Problems Family History Date Family Member(s) Problem(s) Comments Father due to Hypertension () Father due to Diabetes () Mother due to COPD () Mother due to Osteoporosis () First Son A&W Second Son A&W First Daughter A&W First Sister A&W Social History Type Date Description Comments Marital Status Legal Status: Lives With Son Lives With Daughter Diet Healthy, Well Balanced 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 Cigarette Use Never Smoked Cigarettes ETOH Use Rarely consumes alcohol Recreational Drug Use Denies Drug Use Smoking Patient has never smoked Daily Caffeine Consumes on average 2 sodas per day Exercise Type/Frequency Exercises regularly Seat Belt/Car Seat Always uses seat belt Currently Active Patient is currently sexually active STD's HPV, High Risk Allergies, Adverse Reactions, Alerts Date Description Reaction Status Severity Comments 06/16/2015 Bactrim Urticaria active 06/16/2015 Levaquin Urticaria active 01/24/2018 Cephalosporins Urticaria active 03/05/2007 NKDA inactive Medications Medication Date Status Form Strength Qnty SIG Indications Ordering Provider Levothyroxine / Active Tablets 25mcg 1 po qd Unknown Sodium 0000 Albuterol / Active Nebulizer (2.5mg/3ML 1 vial via Unknown Sulfate 0000 ) 0.083% nebulizer 4 times daily as needed Ventolin HFA / Active Aerosol 108(90Base inhale two Unknown 0000 ) mcg/Act puffs by mouth every 4 to 6 hours as needed shortness of breath Montelukast / Active Tablets 10mg 1 by mouth Unknown Sodium 0000 every day Mometasone / Active Suspension 50mcg/Act 2 sprays Unknown Furoate 0000 each nostril daily Sertraline HCL / Active Tablets 100mg 1 by mouth Unknown 0000 every day Hydrodiuril 04/23/ Hx Tablets 50mg 30tab 1 PO qd Gabe Conroy 2006 Amy, M.DKimberly 2014 Cipro 03/05/ Hx Tablets 500mg 20tab One Tab Gabe Conroy 2006 bid. Amy, M.DKimberly 2014 Flovent /00/ Hx Unknown 0000 - 2014 Zyrtec // Hx Unknown 0000 - 2014 Lexapro 00/ Hx Unknown - 2017 Flonase Allergy / Hx Unknown Relief - 2017 Azelastine HCL / Hx Unknown (Nasal) - 2017 Prednisone /00/ Hx Unknown - 2017 Vital Signs Date Vital Result Comment 01/25/2018 BP Systolic 134 mmHg BP Diastolic 88 mmHg Height 63.5 inches 5'3.50" Weight 189.00 lb BMI (Body Mass Index) 33.0 kg/m2 3 Parity 3 06/28/2015 BP Systolic 128 mmHg BP Diastolic 84 mmHg Height 64 inches 5'4" Weight 188.00 lb BMI (Body Mass Index) 32.3 kg/m2 3 Parity 3 06/16/2015 BP Systolic 124 mmHg BP Diastolic 72 mmHg Height 64 inches 5'4" Weight 187.00 lb BMI (Body Mass Index) 32.1 kg/m2 Last Menstrual Period [id number] 3 Parity 3 03/05/2007 BP Systolic 132 mmHg BP Diastolic 78 mmHg Height 64 inches 5'4" Weight 167.00 lb BMI (Body Mass Index) 28.7 kg/m2 Last Menstrual Period [id number] 3 Parity 3 Results Test Date Test Result H/L Range Note Laboratory test finding 01/25/2018 Surgical Pathology <pending> Laboratory test finding 07/20/2015 Follicle Stimulating 65.5 mIU/mL 1 Hormone Luteinizing Hormone 40.7 ?IU/mL 2 HIV 1/2 AB Evaluation 07/20/2015 HIV 1 2 Antibody Nonreactive Nonreactive 3 Laboratory test finding 06/16/2015 Cytology SEE RESULT BELOW 4 Human Papilloma Virus Rna Negative Negative 5 Laboratory test finding 03/05/2007 Urine Culture SPECIMEN CONTAIN <SEE 6 Sensitivi NOTE> 1 Normally menstruating females - Follicular phase 3 - 9 - Mid-cycle peak 4 - 23 - Luteal phase 1 - 6 Postmenopausal females 16 - 114 2 Normally menstruating females - Follicular Phase 1 - 18 - Mid-Cycle Peak 24 - 105 - Luteal Phase 0.6 - 20 Postmenopausal females 15 - 62 3 It is recognized that currently available assays for the detection of antibodies to HIV-1 and/or HIV-2 may not detect all infected individuals. HIV antibodies may be undetectable in some stages of the infection and in some clinical conditions. The performance of this assay has not been established for populations of infants or children. Assayed by Chemiluminescence Microparticle Immunoassay on the Siemens Advia Centaur CP. Values obtained with different methods or kits cannot be used interchangeably.The diagnostic specificity of the ADVIA Centaur 1/O/2 Enhanced assay in the low risk population was 99.90% (6052/6058) with a 95% confidence interval of 99.78 to 99.96%. 4 SEE RESULT BELOW Name: ANABELA BARRAGAN : [address]: Shoshana Boyer NP Acct: [id number] Unit: [id number] AGE: 54 Location: [facility] Re06/16/15 SEX: F Status: REG REF SPEC: [id number] JULIANA: 06/16/15-[address]: Shoshana Boyer AIRPLANE ELECTRICIAN REQ: [id number] RECD: 06/16/15 STATUS: SOUT _ ORDERED: IMAGE ANALYSIS, PAP SM PATH REV, HPV/Thin Prep FINAL DIAGNOSIS EPITHELIAL CELL ABNORMALITIES Low grade squamous intraepithelial lesion (LSIL) A. Ectocervical/Endocervical Specimen Adequacy: Satisfactory of evaluation Transformation zone component identified Patient Information: HPV: High risk HPV RNA testing regardless of pap results. Actual Specimen Date: 06/16/15 Last Menstrual Date: 07/16/09 Spec Date if unknown: unknown Hysterectomy?: N Date Time Test Result Flag (u) Normal Range 06/16/15 1148 HPV RNA Negative Negative The high-risk HPV types detected by the assay include: 16, 18, 31, 33, 35, 39, 45, 51, 52, 56, 58, 59, 66, and 68. Signed (signature on file) Jana Morrow MD 10/28 2003 This Pap test was evaluated with the assistance of the ThinPrep Test Imaging System. Due to cytologic findings at the corner bead operator microscope, comprehensive manual rescreening by a Incinerator Plant Supervisor may be required. The Pap Smear is a screening test designed to aid in the detection of premalignant and malignant conditions of the uterine cervix. It is not a diagnostic procedure and should not be used as the sole means of detecting cervical cancer. Both false- positive and false- negative reports do occur. Depending on your risk status, a Pap smear should be obtained and evaluated every 1-3 years. END OF REPORT * ML=Testing performed at Main Lab DEPARTMENT OF PATHOLOGY, [address] [place] [address] Masood Duval M.D. Director [facility] # [id number] 5 The high-risk HPV types detected by the assay include: 16, 18, 31, 33, 35, 39, 45, 51, 52, 56, 58, 59, 66, and 68. 6 SPECIMEN CONTAINS NORMAL URETHRAL OR PERINEAL PASCUAL AND DOES NOT SUGGEST URINARY TRACT INFECTION 3^3^CCU Procedures Date CPT Code Description Status 01/25/2018 74141 Colposcopy W/Biopsy Cervix/Endocervical Curettage Completed 07/16/2016 Mammogram Completed 07/16/2015 Colonoscopy Completed 06/28/2015 56503 Colposcopy Of The Cervix Inc Upper/Adjacent Vagina Completed 06/16/2015 34547 Remove Intrauterine Device Completed Encounters Type Date Location Provider CPT E/M Dx Office Visit 04/23/2007 1:20p [facility] Gabe Reyes M.D. 83414 621.2 789.00 599.9 Office Visit 03/05/2007 10:00a [facility] Gabe Reyes M.D. 56058 621.2 V78.0 V77.1 Plan of Care No Information Available
[2018-02-12 18:50] VITALS: BP 160/100
--- NOTE | 2018-02-12 19:10 | ED ---
Throat Pain/Nasal Congestion - HPI Summary HPI Summary: 57 yr old female with the complaint of sinus pressure, post nasal drip, congestion, cough, ear discomfort. She accidently got some hose water in right ear a couple days ago. She has tube in ears due to chronic sinus problems. Denies fever. She says she feels achey all over. She states she takes amoxicillin and Augmentin in the past with no issues at all. - History of Current Complaint Chief Complaint: UCGeneralIllness Time Seen by Provider: 02/12/18 18:57 - Allergies/Home Medications Allergies/Adverse Reactions: Allergies Allergy/AdvReac Type Severity Reaction Status Date / Time Cephalosporins Allergy Severe Swelling Verified 12/14/17 16:37 levofloxacin [From Levaquin] Allergy Rash Verified 12/14/17 16:37 nitrofurantoin Allergy Numbness Verified 12/14/17 16:37 And Tingling sulfamethoxazole Allergy Rash Verified 12/14/17 16:37 [From Bactrim] trimethoprim [From Bactrim] Allergy Rash Verified 12/14/17 16:37 Home Medications: Home Medications Beclomethasone Dipropionate [Qnasl] 1 each INH Q12HR 02/12/18 [History Confirmed 02/12/18] Venlafaxine CAP (NF) [Effexor CAP (NF)] 37.5 mg PO DAILY 02/12/18 [History Confirmed 02/12/18] PMH/Surg Hx/FS Hx/Imm Hx Endocrine/Hematology History: Reports: Hx Thyroid Disease - HYPOTHYROIDISM Denies: Hx Diabetes Cardiovascular History: Denies: Hx Congestive Heart Failure, Hx Deep Vein Thrombosis, Hx Hypertension , Hx Myocardial Infarction, Hx Pacemaker/ICD Respiratory History: Reports: Hx Asthma - cold induced Denies: Hx Chronic Obstructive Pulmonary Disease (COPD), Hx Lung Cancer, Hx Pneumonia, Hx Pulmonary Embolism GI History: Denies: Hx Gall Bladder Disease, Hx Gastrointestinal Bleed, Hx Ulcer, Hx Urosepsis History: Denies: Hx Kidney Stones, Hx Renal Disease Sensory History: Denies: Hx Hearing Aid Neurological History: Denies: Hx Dementia, Hx Migraine, Hx Seizures, Hx Transient Ischemic Attacks (TIA) Psychiatric History: Reports: Hx Anxiety Denies: Hx Depression, Hx Panic Disorder, Hx Schizophrenia, Hx Bipolar Disorder - Cancer History Hx Chemotherapy: No Hx Radiation Therapy: No - Surgical History Surgery Procedure, Year, and Place: ovary removed d/t cyst. varicose vein surgery on left leg., TONSILLECTOMY, ADENOIDECTOMY, BILAT EAR TUBES 2016 (STILL IN PLACE), D&C Infectious Disease History: No Infectious Disease History: Denies: Hx Clostridium Difficile, Hx Hepatitis, Hx Human Immunodeficiency Virus (HIV), Hx of Known/Suspected MRSA, Hx Shingles, Hx Tuberculosis, Hx Known/ Suspected VRE, Hx Known/Suspected VRSA, History Other Infectious Disease, Traveled Outside the [place] in Last 30 Days - Family History Known Family History: Positive: Cardiac Disease, Respiratory Disease - mother with COPD, Other - allergies - Social History Lives: With Family Alcohol Use: Rare Substance Use Type: Reports: None Hx Tobacco Use: No Smoking Status (MU): Never Smoked Tobacco Have You Smoked in the Last Year: No Review of Systems Constitutional: Negative Positive: Sore Throat, Ear Ache, Nasal Discharge All Other Systems Reviewed And Are Negative: Yes Physical Exam Triage Information Reviewed: Yes Vital Signs On Initial Exam: Initial Vitals Temp Pulse Resp BP Pulse Ox 98.7 F 82 16 160/100 100 02/12/18 18:46 02/12/18 18:46 02/12/18 18:46 02/12/18 18:46 02/12/18 18:46 Vital Signs Reviewed: Yes Appearance: Positive: Well-Appearing, No Pain Distress Skin: Positive: Warm, Skin Color Reflects Adequate Perfusion Head/Face: Positive: Normal Head/Face Inspection Eyes: Positive: EOMI ENT: Positive: Pharynx normal, TMs normal - with tubes in each TM. no drainage. , Sinus tenderness - bilateral. Negative: Muffled voice, Hoarse voice Neck: Positive: Nontender Respiratory/Lung Sounds: Positive: Clear to Auscultation, Breath Sounds Present Cardiovascular: Positive: RRR. Negative: Murmur Abdomen Description: Negative: Distended Musculoskeletal: Positive: Strength/ROM Intact Neurological: Positive: Sensory/Motor Intact, Alert, Oriented to Person Place, Time, CN Intact II-III, Normal Gait, Speech Normal Psychiatric: Positive: Normal - [place] Coma Scale Best Eye Response: 4 - Spontaneous Best Motor Response: 6 - Obeys Commands Best Verbal Response: 5 - Oriented Coma Scale Total: 15 Diagnostics - Vital Signs Vital Signs Temp Pulse Resp BP Pulse Ox 02/12/18 18:46 98.7 F 82 16 160/100 100 - Laboratory Lab Statement: Any lab studies that have been ordered have been reviewed, and results considered in the medical decision making process. EENT Course/Dx - Course Course Of Treatment: 57 yr old female with sinusitis. Rx Augmentin which she states she takes with no issues at all. - Diagnoses Provider Diagnoses: Sinusitis, Hypertension Discharge - Sign-Out/Discharge Documenting (check all that apply): Patient Departure - Discharge Plan Condition: Good Disposition: HOME Prescriptions: Amoxicillin/Clavulanate TAB* [Augmentin TAB 875*] 875 mg PO BID #20 tab Fluconazole [Diflucan 150 MG (NF)] 150 mg PO ONCE #1 tab Patient Education Materials: Sinusitis (ED), Hypertension (ED) Referrals: Kinjal Rose MD [Primary Care Provider] - 2 Days - Billing Disposition and Condition Condition: GOOD Disposition: Home
== END 2018-02-12 19:15 | disposition home or self-care (01) ==
LOC: UCCORT 18:31
DX: J32.9 Chronic sinusitis, unspecified (principal); I10 Essential (primary) hypertension; J45.909 Unspecified asthma, uncomplicated; Z88.1 Allergy status to other antibiotic agents; Z88.2 Allergy status to sulfonamides
CPT/HCPCS: 99212; G0463

== ENCOUNTER 2018-06-12 17:39 | Emergency (ER) | payer BC ==
[2018-06-12 17:48] VITALS: BP 139/93
--- NOTE | 2018-06-12 18:14 | UC ---
Skin Complaint HPI - HPI Summary HPI Summary: 57-year-old woman here with a chief complaint of irritation in her scalp. For about a month on her occiput she's had an area that's been itching and mildly painful. Recently it's been getting worse. She has been taking a picture of it and it's red and erythematous and she is worried that his infection on IT. No fevers or chills feels well otherwise. - History of Current Complaint Chief Complaint: UCSkin Time Seen by Provider: 06/12/18 18:01 Stated Complaint: SOFT TISSUE COMPLAINT Hx Last Menstrual Period: 2011 Pain Intensity: 5 - Allergy/Home Medications Allergies/Adverse Reactions: Allergies Allergy/AdvReac Type Severity Reaction Status Date / Time Cephalosporins Allergy Severe Swelling Verified 06/12/18 17:48 levofloxacin [From Levaquin] Allergy Rash Verified 06/12/18 17:48 nitrofurantoin Allergy Numbness Verified 06/12/18 17:48 And Tingling sulfamethoxazole Allergy Rash Verified 06/12/18 17:48 [From Bactrim] trimethoprim [From Bactrim] Allergy Rash Verified 06/12/18 17:48 Home Medications: Home Medications Sertraline* [Zoloft*] 25 mg PO DAILY 06/12/18 [History Confirmed 06/12/18] Review of Systems All Other Systems Reviewed And Are Negative: Yes Constitutional: Positive: Negative Skin: Positive: Other - SEE HPI Eyes: Positive: Negative ENT: Positive: Negative Respiratory: Positive: Negative Cardiovascular: Positive: Negative Gastrointestinal: Positive: Negative Motor: Positive: Negative Neurovascular: Positive: Negative Musculoskeletal: Positive: Negative Neurological: Positive: Negative Psychological: Positive: Negative Is Patient Immunocompromised?: No PMH/Surg Hx/FS Hx/Imm Hx Endocrine History: Hypothyroidism - Surgical History Surgical History: Yes Surgery Procedure, Year, and Place: ovary removed d/t cyst. varicose vein surgery on left leg., TONSILLECTOMY, ADENOIDECTOMY, BILAT EAR TUBES 2016 (STILL IN PLACE), D&C Other Surgical History: Tonsillectomy, Ovary removal - Family History Known Family History: Positive: Cardiac Disease, Respiratory Disease - mother with COPD, Other - allergies - Social History Alcohol Use: Occasionally Substance Use Type: None Smoking Status (MU): Never Smoked Tobacco Have You Smoked in the Last Year: No - Immunization History Most Recent Influenza Vaccination: none Physical Exam Triage Information Reviewed: Yes Appearance: Well-Appearing, No Pain Distress, Well-Nourished Vital Signs: Initial Vital Signs Temp 98.8 F 06/12/18 17:44 Pulse 73 06/12/18 17:44 Resp 18 06/12/18 17:44 BP 139/93 06/12/18 17:44 Pulse Ox 96 06/12/18 17:44 Vital Signs Reviewed: Yes Eye Exam: Normal Eyes: Positive: Conjunctiva Clear Neck exam: Normal Neck: Positive: Supple Respiratory: Positive: No respiratory distress Musculoskeletal Exam: Normal Musculoskeletal: Positive: Strength Intact, ROM Intact Neurological Exam: Normal Neurological: Positive: Alert, Muscle Tone Normal Psychological Exam: Normal Psychological: Positive: Age Appropriate Behavior Skin: Positive: Other - On the occiput of the scalp there is a 1.5 cm diameter area of erythema. In the middle there is a light brown slightly raised area. No drainage no scaling no streaking. Course/Dx - Course Course Of Treatment: Most probable condition is seborrheic dermatitis with a superimposed bacterial infection. The plan is to treat with antibiotics and antifungals and have her follow-up with dermatology. - Diagnoses Provider Diagnosis: Rash Discharge - Sign-Out/Discharge Documenting (check all that apply): Patient Departure All imaging exams completed and their final reports reviewed: No Studies - Discharge Plan Condition: Stable Disposition: HOME Prescriptions: Amoxicillin/Clavulanate TAB* [Augmentin TAB 875*] 875 mg PO BID #20 tab Ketoconazole 1 applic TOPICAL BID #15 gm Mupirocin 1 applic TOPICAL TID #22 gm Patient Education Materials: Acute Rash (ED), Cellulitis (ED) Referrals: Kinjal Rose MD [Primary Care Provider] - Jeremiah Jernigan MD [Medical Doctor] - Additional Instructions: FOLLOW UP WITH DERMATOLOGY. GET RECHECKED FOR ANY WORSENING OF YOUR CONDITION OR QUESTIONS OR CONCERNS. - Billing Disposition and Condition Condition: STABLE Disposition: Home
== END 2018-06-12 18:25 | disposition home or self-care (01) ==
LOC: UCEAST 17:39
DX: R21 Rash and other nonspecific skin eruption (principal); Z88.1 Allergy status to other antibiotic agents; Z88.2 Allergy status to sulfonamides
CPT/HCPCS: 99212; G0463

== ENCOUNTER 2018-12-06 19:46 | Emergency (ER) | payer BC ==
[2018-12-06 19:54] VITALS: BP 149/91
--- NOTE | 2018-12-06 20:13 | UC ---
Respiratory Complaint HPI - HPI Summary HPI Summary: 58-year-old female who has had cold symptoms since Sunday with head congestion and tight cough. She does not have asthma however she states whenever she is ill with an upper respiratory illness she does have wheezing and needs to use her albuterol inhaler. She is a nonsmoker. She also complains of dorsal right foot pain which has been bothering her for months however there is no specific injury but she is requesting an x-ray. - History of Current Complaint Chief Complaint: UCGeneralIllness Stated Complaint: COUGH,R FOOT PAIN Time Seen by Provider: 12/06/18 20:12 Hx Obtained From: Patient Hx Last Menstrual Period: 2011 ?: No Onset/Duration: Gradual Onset, Other - Right foot pain has been lasting for months the cold symptoms just this week. Timing: Constant Severity Initially: Mild Severity Currently: Mild Pain Intensity: 7 Character: Cough: Nonproductive Aggravating Factors: Nothing Alleviating Factors: Bronchodilator Associated Signs And Symptoms: Positive: URI, Nasal Congestion, Sinus Discomfort - Allergies/Home Medications Allergies/Adverse Reactions: Allergies Allergy/AdvReac Type Severity Reaction Status Date / Time Cephalosporins Allergy Severe Swelling Verified 12/06/18 19:54 levofloxacin [From Levaquin] Allergy Rash Verified 12/06/18 19:54 nitrofurantoin Allergy Numbness Verified 12/06/18 19:54 And Tingling sulfamethoxazole Allergy Rash Verified 12/06/18 19:54 [From Bactrim] trimethoprim [From Bactrim] Allergy Rash Verified 12/06/18 19:54 Home Medications: Home Medications Montelukast Sodium TAB* [Singulair 5 mg TAB*] 5 mg PO DAILY PRN MDD 1 12/06/18 [ History Confirmed 12/06/18] PMH/Surg Hx/FS Hx/Imm Hx Previously Healthy: Yes Respiratory History: Asthma - Patient only has asthma symptoms when she has upper respiratory illness. - Surgical History Surgical History: Yes Surgery Procedure, Year, and Place: ovary removed d/t cyst. varicose vein surgery on left leg., TONSILLECTOMY, ADENOIDECTOMY, BILAT EAR TUBES 2015 (STILL IN PLACE), D&C Other Surgical History: Tonsillectomy, Ovary removal - Family History Known Family History: Positive: Cardiac Disease, Respiratory Disease - mother with COPD, Other - allergies - Social History Alcohol Use: None Substance Use Type: None Smoking Status (MU): Never Smoked Tobacco Have You Smoked in the Last Year: No - Immunization History Most Recent Influenza Vaccination: none Review of Systems All Other Systems Reviewed And Are Negative: Yes ENT: Positive: Nasal Discharge, Sinus Congestion Respiratory: Positive: Cough - Tight cough Motor: Positive: Other - Pain over dorsum of right foot which has been ongoing for the past 2 months. No specific injury. Neurovascular: Positive: Negative Musculoskeletal: Positive: Negative Neurological: Positive: Negative Is Patient Immunocompromised?: No Physical Exam Triage Information Reviewed: Yes Appearance: Well-Appearing, No Pain Distress, Well-Nourished Vital Signs: Initial Vital Signs Temp 99.4 F 12/06/18 19:49 Pulse 77 12/06/18 19:49 Resp 18 12/06/18 19:49 BP 149/91 12/06/18 19:49 Pulse Ox 98 12/06/18 19:49 Vital Signs Reviewed: Yes Eyes: Positive: Conjunctiva Clear ENT: Positive: Hearing grossly normal, Pharynx normal, Nasal congestion, TMs normal, Sinus tenderness - Mild bilateral maxillary sinus tenderness., Uvula midline Neck: Positive: Supple, Nontender, No Lymphadenopathy Respiratory: Positive: Lungs clear, Normal breath sounds, No respiratory distress, No accessory muscle use, Other: - I don't hear any wheezing however patient does have a tight cough. Cardiovascular: Positive: RRR, No Murmur, Pulses Normal, Brisk Capillary Refill Musculoskeletal: Positive: Strength Intact, ROM Intact, Other: - Mild tenderness on palpation to the dorsum of the right foot, no bruising, erythema, deformity or swelling is noted. Achilles is intact, base of the fifth and first metatarsals are nontender. Good ankle stability. Psychological Exam: Normal Skin Exam: Normal Respiratory Course/Dx - Course Course Of Treatment: Right foot x-ray:negative as read by myself. She was given a nebulizer treatment which she states improved her aeration and her lungs remained clear following the treatment. I sent and a prescription for albuterol nebulizer solution since she is unsure of the expiration date of but she has at home. She is to follow-up with her primary care provider on Sunday if no better. As far as her foot is concerned I believe that's a chronic overuse injury however she is to follow-up with an orthopedist for further treatment for that and may take Tylenol or Motrin for pain. I wanted to treat the patient with prednisone however she states last time she took prednisone her tongue got thick and prickly therefore I'm just going to have her to the epidural treatments over the weekend and follow-up with her doctor as needed. - Differential Dx/Diagnosis Provider Diagnosis: Bronchitis, Right foot sprain Discharge - Sign-Out/Discharge Documenting (check all that apply): Patient Departure All imaging exams completed and their final reports reviewed: No - Discharge Plan Condition: Fair Disposition: HOME Prescriptions: Albuterol 2.5MG/3ML (0.083%)* [Ventolin 2.5 MG/3 ML NEB.ELI*] 2.5 mg INH Q4H PRN #30 [email or web address] PRN Reason: Wheezing Patient Education Materials: Acute Bronchitis (ED), Foot Sprain (ED) Referrals: Kinjal Rose MD [Primary Care Provider] - Additional Instructions: Use your albuterol nebulizer every 4 hours as needed for tight cough or wheezing. Apply ice or heat to your foot and take Tylenol or Motrin for pain. Definite follow-up with an orthopedist if no improvement in 3 or 4 days. Follow -up to primary care provider if you continue to have tight cough and wheezing on Sunday. - Billing Disposition and Condition Condition: FAIR Disposition: Home
[2018-12-06] MEDS ORDERED: Albuterol/Ipratropium NEB.SOL* Albuterol 2.5 MG/Ipratropium 0.5 MG 3 ML INH ONE (20:17)
--- NOTE | 2018-12-07 20:29 | UC ---
- Progress Note Progress Note: Patient Name: MICHELE AVELAR Medical Record#: [id number] Ordering Physician: Laxmi Hernandez NP Acct.#: [id number] : 1960 Age: 58 Sex: F Location: [facility] Exam Date: 12/06/182019 ADM Status: DEP ER Order Information: FOOT RIGHT 3+ VWS Accession Number: [id number] CPT: 15233 Indication: Chronic dorsal RIGHT foot pain; first metatarsal phalangeal joint swelling. Comparison: December 12, 2017 Technique: AP, lateral, and oblique views RIGHT foot. Report: Negative for fracture or malalignment. Moderate first metatarsal phalangeal joint space narrowing with only minimal osteophytosis. Subchondral sclerosis most prominent at the head of the metatarsal. No osseous erosions or periarticular soft tissue calcification. Negative for periarticular osteopenia. Mild periarticular soft tissue swelling. IMPRESSION: #. 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 R2 Preliminary Imaging Read R2 <Electronically signed by Magnus Gomes MD in OV> 12/07/18826 Dictated By: Magnus Gomes MD Dictated Date/Time: 12/07/18826 Transcribed Date/Time: 12/07/18824 Copy to: CC:Laxmi Hernandez NP; Kinjal Rose MD; Neil Rashid MD Imaging - [facility] Imaging - [facility] [address] [place] [address] ph ([phone]) ph ([phone]) ph ([phone]) This report is only to be considered final once signed by the Provider(s) as displayed in the "<Electronically Signed by >" field (s). Absence of a signature indicates the report is in a draft status and still needs to be finalized. In the event this document was created by someone other than the signing Provider, the individual initiating the document will be listed in the "Entered by:" or "Dictated by:" lamas. 1 of 1 Course/Dx - Diagnoses Provider Diagnoses: Bronchitis, Right foot sprain Discharge - Sign-Out/Discharge Documenting (check all that apply): Post-Discharge Follow Up All imaging exams completed and their final reports reviewed: Yes - Discharge Plan Condition: Fair Disposition: HOME Prescriptions: Albuterol 2.5MG/3ML (0.083%)* [Ventolin 2.5 MG/3 ML NEB.ELI*] 2.5 mg INH Q4H PRN #30 [email or web address] PRN Reason: Wheezing Patient Education Materials: Acute Bronchitis (ED), Foot Sprain (ED) Referrals: Kinjal Rose MD [Primary Care Provider] - Additional Instructions: Use your albuterol nebulizer every 4 hours as needed for tight cough or wheezing. Apply ice or heat to your foot and take Tylenol or Motrin for pain. Definite follow-up with an orthopedist if no improvement in 3 or 4 days. Follow -up to primary care provider if you continue to have tight cough and wheezing on Sunday. - Billing Disposition and Condition Condition: FAIR Disposition: Home
== END 2018-12-06 21:25 | disposition home or self-care (01) ==
LOC: UCEAST 19:46
DX: J40 Bronchitis, not specified as acute or chronic (principal); S93.601A Unspecified sprain of right foot, initial encounter; X58.XXXA Exposure to other specified factors, initial encounter; Y92.9 Unspecified place or not applicable; Z88.2 Allergy status to sulfonamides
CPT/HCPCS: 99212; A9270-GY; G0463

== ENCOUNTER 2019-05-05 16:35 | Emergency (ER) | payer BC ==
[2019-05-05 17:18] VITALS: BP 143/83
--- NOTE | 2019-05-05 17:49 | UC ---
Hand/Wrist HPI - HPI Summary HPI Summary: 58 yo female presents with LEFT wrist pain. She tells me that 3 days ago she woke up and was sleeping on her left wrist. Since that time has had pain in the ulnar aspect that is worse with movement. Pain has improved since that time, but is still present. She is right handed. Has not rested or applied ice. Nothing OTC for discomfort. She is most concerned because she had a fx to this wrist years ago. Denies numbness or tingling. - History Of Current Complaint Chief Complaint: UCUpperExtremity Stated Complaint: LEFT WRIST PAIN Time Seen by Provider: 05/05/19 17:48 Hx Obtained From: Patient Hx Last Menstrual Period: 2011 Onset/Duration: Sudden Onset Severity Initially: Moderate Severity Currently: Moderate Pain Intensity: 6 Pain Scale Used: 0-10 Numeric - Allergies/Home Medications Allergies/Adverse Reactions: Allergies Allergy/AdvReac Type Severity Reaction Status Date / Time Cephalosporins Allergy Severe Swelling Verified 05/05/19 17:18 levofloxacin [From Levaquin] Allergy Rash Verified 05/05/19 17:18 nitrofurantoin Allergy Numbness Verified 05/05/19 17:18 And Tingling prednisone Allergy See Comment Verified 05/05/19 17:19 sulfamethoxazole Allergy Rash Verified 05/05/19 17:18 [From Bactrim] trimethoprim [From Bactrim] Allergy Rash Verified 05/05/19 17:18 Home Medications: Home Medications Beclomethasone Dipropionate [Qnasl] 1 inh INH DAILY 05/05/19 [History Confirmed 05/05/19] Escitalopram Oxalate [Lexapro 10 mg] 20 mg PO DAILY 05/05/19 [History Confirmed 05/05/19] diphenhydrAMINE HCl [Benadryl Allergy] 1 tab PO Q4HR PRN 05/05/19 [History Confirmed 05/05/19] PMH/Surg Hx/FS Hx/Imm Hx Endocrine History: Hypothyroidism Respiratory History: Asthma Psychological History: Anxiety, Depression - Surgical History Surgical History: Yes Surgery Procedure, Year, and Place: ovary removed d/t cyst. varicose vein surgery on left leg., TONSILLECTOMY, ADENOIDECTOMY, BILAT EAR TUBES 2015 (STILL IN PLACE), D&C Other Surgical History: Tonsillectomy, Ovary removal - Family History Known Family History: Positive: Cardiac Disease, Respiratory Disease - mother with COPD, Other - allergies - Social History Lives: With Family Alcohol Use: Rare Substance Use Type: None Smoking Status (MU): Never Smoked Tobacco Have You Smoked in the Last Year: No - Immunization History Most Recent Influenza Vaccination: none Review of Systems All Other Systems Reviewed And Are Negative: No Constitutional: Positive: Negative Respiratory: Positive: Negative Cardiovascular: Positive: Negative Neurovascular: Positive: Negative Musculoskeletal: Positive: Other: - Left wrist pain Neurological: Positive: Negative Psychological: Positive: Negative Physical Exam - Summary Physical Exam Summary: GENERAL: NAD. WDWN. No pain distress. SKIN: No rashes, sores, lesions, or open wounds. CHEST: No accessory muscle use. Breathing comfortably and in no distress. CV: Pulses intact radial and ulnar. Cap refill <2seconds MSK: LEFT WRIST: Mild TTP about ulnar aspect without specific point tenderness. FROM. 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 No edema or obvious bony deformities. No snuffbox tenderness. NEURO: Alert. Sensations intact hand and all fingers. PSYCH: Age appropriate behavior. Triage Information Reviewed: Yes Vital Signs: Initial Vital Signs Temp 98.9 F 05/05/19 17:13 Pulse 67 05/05/19 17:13 Resp 18 05/05/19 17:13 BP 143/83 05/05/19 17:13 Pulse Ox 96 05/05/19 17:13 Vital Signs Reviewed: Yes Diagnostics - Radiology Wrist XR Radiology Interpretation Completed By: Radiologist Summary of Radiographic Findings: IMPRESSION: Normal radiograph of the left wrist. If the patient's symptoms persist, follow-up imaging is recommended. Hand/Wrist Course/Dx - Course Course Of Treatment: XR as above. Suspect tendinitis. Pt was placed in a cock up splint for comfort and advised to RICE and f/u if symptoms do not continue improving - Differential Dx/Diagnosis Provider Diagnosis: Wrist pain Discharge ED - Sign-Out/Discharge Documenting (check all that apply): Patient Departure All imaging exams completed and their final reports reviewed: Yes - Discharge Plan Condition: Stable Disposition: HOME Patient Education Materials: Tendinitis (ED) Referrals: Aurora Merlos DO [Primary Care Provider] - Additional Instructions: If you develop a fever, shortness of breath, chest pain, new or worsening symptoms - please call your PCP or go to the ED immediately. Your blood pressure was high at todays visit. Please see your primary provider within 4 weeks for recheck and re-evaluation. 1) Rest, ice, and use the wrist brace as needed for comfort - Billing Disposition and Condition Condition: STABLE Disposition: Home - Attestation Statements Provider Attestation: Per institutional requirements, I have reviewed the chart, however, I was not consulted specifically or made aware of this patient by the midlevel provider. I did not personally evaluate, interact with , or disposition this patient.
== END 2019-05-05 18:15 | disposition home or self-care (01) ==
LOC: UCEAST 16:35
DX: M25.532 Pain in left wrist (principal); J45.909 Unspecified asthma, uncomplicated; F41.9 Anxiety disorder, unspecified; F32.9 Major depressive disorder, single episode, unspecified; Z88.1 Allergy status to other antibiotic agents; Z88.2 Allergy status to sulfonamides; Z88.8 Allergy status to other drugs, medicaments and biological substances; Z79.899 Other long term (current) drug therapy
CPT/HCPCS: 99212; G0463

== ENCOUNTER 2019-06-16 09:59 | Emergency (ER) | payer BC ==
[2019-06-16 10:11] VITALS: BP 142/82
--- NOTE | 2019-06-16 11:38 | UC ---
General HPI - HPI Summary HPI Summary: Ms. Ponce was eating a taco with ground beef last evening when she felt irritation to the right side of her throat. Since that time she's had a foreign body sensation in that area and she points to the right anterior throat. She also states that she feels some irritation further down in her chest and that using her albuterol inhaler has helped that. She is not short of breath. She's had no fevers. She is able to ingest fluids as well as some toast she had for breakfast which seemed to make the throat irritation worse. - History of Current Complaint Chief Complaint: UCGI Stated Complaint: FB IN THROAT Hx Obtained From: Patient Hx Last Menstrual Period: 2011 Onset/Duration: Sudden Onset Timing: Constant Onset Severity: Moderate Current Severity: Moderate Pain Intensity: 5 - Allergy/Home Medications Allergies/Adverse Reactions: Allergies Allergy/AdvReac Type Severity Reaction Status Date / Time Cephalosporins Allergy Severe Swelling Verified 06/16/19 10:11 levofloxacin [From Levaquin] Allergy Rash Verified 06/16/19 10:11 nitrofurantoin Allergy Numbness Verified 06/16/19 10:11 And Tingling prednisone Allergy See Comment Verified 06/16/19 10:11 sulfamethoxazole Allergy Rash Verified 06/16/19 10:11 [From Bactrim] trimethoprim [From Bactrim] Allergy Rash Verified 06/16/19 10:11 PMH/Surg Hx/FS Hx/Imm Hx Respiratory History: Asthma - Surgical History Surgical History: Yes Surgery Procedure, Year, and Place: ovary removed d/t cyst. varicose vein surgery on left leg., TONSILLECTOMY, ADENOIDECTOMY, BILAT EAR TUBES 2016 (STILL IN PLACE), D&C Other Surgical History: Tonsillectomy, Ovary removal - Family History Known Family History: Positive: Cardiac Disease, Respiratory Disease - mother with COPD, Other - allergies - Social History Alcohol Use: Rare Substance Use Type: None Smoking Status (MU): Never Smoked Tobacco Have You Smoked in the Last Year: No - Immunization History Most Recent Influenza Vaccination: none Review of Systems All Other Systems Reviewed And Are Negative: Yes Constitutional: Positive: Negative Skin: Positive: Negative ENT: Positive: Sore Throat Respiratory: Positive: Other - Tight on the right side Cardiovascular: Positive: Negative Gastrointestinal: Positive: Negative Physical Exam - Summary Physical Exam Summary: She is nontoxic in appearance with stable vital signs. Triage Information Reviewed: Yes Appearance: Well-Appearing, Obese Vital Signs: Initial Vital Signs Temp 98.2 F 06/16/19 10:03 Pulse 68 06/16/19 10:03 Resp 18 06/16/19 10:03 BP 142/82 06/16/19 10:03 Pulse Ox 97 06/16/19 10:03 Vital Signs Reviewed: Yes ENT Exam: Normal Neck exam: Normal Neck: Positive: Supple Respiratory Exam: Normal Respiratory: Positive: Chest non-tender, Lungs clear, Normal breath sounds, No respiratory distress, No accessory muscle use. Negative: Wheezing Cardiovascular Exam: Normal Abdominal Exam: Normal Diagnostics - Radiology CXR Radiology Interpretation Completed By: Radiologist Summary of Radiographic Findings: No acute process soft tissue neck Radiology Interpretation Completed By: Radiologist Summary of Radiographic Findings: No acute process Course/Dx - Course Course Of Treatment: Most likely explanation for her symptoms is that she scratched her throat last evening and still has a foreign body sensation. I spoke with Dr. Florian was campus receptionist for [facility]. The offices are closed today because of the snowstorm. He agrees and is willing to see her tomorrow morning in the office if she continues to have symptomatology. Because of the possibility of a foreign body aspiration given her additional symptoms I recommended that if she has any difficulty breathing she either go to the emergency department or call 911. Otherwise she will need follow-up possibly with pulmonology if she continues to have problems. If she spikes a fever in the next couple of weeks I recommended she see her PCP as she may have an aspiration pneumonia. - Diagnoses Provider Diagnosis: Pharyngeal foreign body Discharge ED - Sign-Out/Discharge Documenting (check all that apply): Patient Departure All imaging exams completed and their final reports reviewed: Yes - Discharge Plan Condition: Stable Disposition: HOME Patient Education Materials: Foreign Body in Pharynx (ED) Referrals: Aurora Merlos DO [Primary Care Provider] - Additional Instructions: If you are still symptomatic tomorrow morning, please follow up with Dr. Vinay Florian at [facility] at [place]. Call at 8:30 to schedule a time ([phone]). They are located at [address] in [place]. If you have any trouble breathing, please call 911 or go to the Emergency Department. - Billing Disposition and Condition Condition: STABLE Disposition: Home
--- OUTSIDE RECORDS SUMMARY | 2019-06-17 16:15 | XMS REPORT | Continuity of Care Document ---
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 Onset: 12/10/2018 Essential hypertension Onset: 11/01/2018 Serous otitis media Onset: 10/19/2016 Obstructive sleep apnea of adult Onset: 10/18/2016 Hypertrophy of salivary gland Onset: 07/08/2013 Multiple environmental allergies Onset: 11/05/2009 Inactive Problems Cellulitis of scalp Onset: 11/15/2018 Inactive: 11/15/2018 Social History Type Date Description Comments Sex Unknown Allergies, Adverse Reactions, Alerts Active Allergies Reaction Severity Comments Date Bactrim rash Mild 03/21/2019 Cephalexin severe rash/joint pains Severe 03/21/2019 Levaquin rash Mild 03/21/2019 Nitrofurantoin, Macrocrystals / tongue numb, dizziness 03/21/2019 Nitrofurantoin, Monohydrate Prednisone 05/16/2019 Medications Active Medications SIG Qnty Indications Ordering Date Provider Estrace Apply daily 42.5units Unknown 02/10/2019 0.1mg/GM Cream Vaginal Xyzal Allergy 24HR 1 daily Oral 90tabs Unknown 01/28/2019 5mg Tablets Ventolin HFA Inhalation; Take 3units Unknown 01/02/2019 2 puffs every 108(90Base) mcg/Act 4-6 hours as Aerosol necessary for shortness of breath Qnasl Nasal; Place 2 8.7units Unknown 12/11/2018 80mcg/Act Aerosol Sprays In Each Nostril Daily Escitalopram Oxalate 1 daily oral 90tabs Celio Ta MD 11/01/2018 10mg Tablets Levothyroxine Sodium Oral; Take One 90tabs Unknown 10/11/2017 Tablet By Mouth 25mcg Tablets Every Day History Medications Xyzal 1 daily Oral 90tabs Unknown 01/02/2019 - 01/28/2019 5mg Tablets Ventolin HFA Inhalation; Take 2 18units Unknown 12/11/2018 - 01/02/2019 108(90Base) puffs every 4-6 hours mcg/Act Aerosol as necessary for shortness of breath Augmentin 1 twice daily Oral 14tabs Unknown 11/15/2018 - 11/22/2018 875-125mg Tablets Medications Administered in Office Medication SIG Qnty Indications Ordering Provider Date Allergy Injection 2 Or More Unknown 04/28/2015 Injection Allergy Injection 2 Or More Unknown 04/21/2015 Injection Allergy Injection 2 Or More Unknown 04/14/2015 Injection Immunizations CPT Code Status Date Vaccine Lot # [id number] Given 04/19/2018 Influenza Virus Vaccine, Quadrivalent, Split Virus, Im Use 0.5ML 93644 Given 04/19/2018 Flu < 65 years 77745 Given 04/19/2018 Influenza Virus Vaccine, Quadrivalent, Split, Preservative Free 03489 Given 04/19/2018 Flumist 82700 Given 04/19/2018 Flu High Dose 79283 Given 04/19/2018 Influenza Virus Vaccine, Split, Preserv Free, Intradermal Use 04292 Given 03/23/2017 Influenza Virus Vaccine, Split, Preserv Free, Intradermal Use 47910 Given 03/23/2017 Flu High Dose 65831 Given 03/23/2017 Flumist 77615 Given 03/23/2017 Influenza Virus Vaccine, Quadrivalent, Split, Preservative Free 92197 Given 03/23/2017 Flu < 65 years 95106 Given 03/23/2017 Influenza Virus Vaccine, Quadrivalent, Split Virus, Im Use 0.5ML 33593 Given 07/19/2015 Influenza Virus Vaccine, Quadrivalent, Split Virus, Im Use 0.5ML 01329 Given 07/19/2015 Flu < 65 years 09009 Given 07/19/2015 Influenza Virus Vaccine, Quadrivalent, Split, Preservative Free 32444 Given 07/19/2015 Flumist 98551 Given 07/19/2015 Flu High Dose 69731 Given 03/26/2013 Influenza Virus Vaccine Split Virus Intramuscular Use 0.5ML 34992 Given 03/26/2013 Flu High Dose 23970 Given 03/26/2013 Flumist 05851 Given 03/26/2013 Influenza Virus Vaccine, Quadrivalent, Split, Preservative Free 68059 Given 03/26/2013 Flu < 65 years 45269 Given 03/26/2013 Influenza Virus Vaccine, Quadrivalent, Split, Im Use 0.25ML 48614 Given 03/26/2013 Influenza Virus Vaccine, Quadrivalent, Split, Im Use 0.25ML 42195 Given 03/26/2013 Influenza Virus Vaccine, Quadrivalent, Split, Im Use 0.25ML 95676 Given 03/26/2013 Influenza Virus Vaccine, Quadrivalent, Split, Im Use 0.25ML 83127 Given 02/16/2012 Tdap - Boostrix/Adacel 81934 Given 02/16/2012 Influenza Virus Vaccine, Quadrivalent, Split, Im Use 0.25ML 70491 Given 02/16/2012 Influenza Virus Vaccine, Quadrivalent, Split, Im Use 0.25ML 07794 Given 02/16/2012 Influenza Virus Vaccine, Quadrivalent, Split, Im Use 0.25ML 98929 Given 02/16/2012 Flu < 65 years 96352 Given 02/16/2012 Influenza Virus Vaccine, Quadrivalent, Split, Preservative Free 05146 Given 02/16/2012 Flumist 46011 Given 02/16/2012 Flu High Dose 71050 Given 02/16/2012 Influenza Virus Vaccine Split Virus Intramuscular Use 0.5ML Vital Signs Date Vital Result Comment 05/16/2019 9:17am BP Systolic 118 mmHg BP Diastolic 66 mmHg Height 63.5 inches 5'3.50" Weight 187.00 lb Heart Rate 69 /min Body Temperature 98.0 F O2 % BldC Oximetry 98 % BMI (Body Mass Index) 32.6 kg/m2 11/15/2018 10:39am BP Systolic 138 mmHg Heart Rate 77 /min Body Temperature 98.6 F O2 % BldC Oximetry 97 % Results Test Acquired Date Facility Test Result H/L Range Note 10 Yr CHD Risk 02/10/2019 N2N/CCD Import 10 Yr CHD Risk 3%. 10 Yr CHD Risk 02/09/2019 N2N/CCD Import 10 Yr CHD Risk 3%. 10 Yr CHD Risk 12/18/2018 N2N/CCD Import 10 Yr CHD Risk 3%. 10 Yr CHD Risk 12/11/2018 N2N/CCD Import 10 Yr CHD Risk 3%. 10 Yr CHD Risk 12/02/2018 N2N/CCD Import 10 Yr CHD Risk 3%. Procedures Date Code Description Status 05/16/2019 66383 Brief Emotional/Behav Assessment W/ Scoring Doc Per Completed Standard Inst Medical Devices Description No Information Available Encounters Type Date Location Provider Dx Diagnosis Office Visit 05/16/2019 [facility] Aurora Aaronelieser, DO Z00.00 Encntr for general 9:15a adult medical exam w/o abnormal findings Z68.32 Body mass index (BMI) 32.0-32.9, adult Assessments Date Code Description Provider 05/16/2019 Z00.00 Encounter for general adult medical Aurora Aaronelieser, examination without abnormal findings 05/16/2019 Z68.32 Body mass index (BMI) 32.0-32.9, adult Aurora Aaronelieser, DO Plan of Treatment 05/16/2019 - Aurora Aaronelieser DOZ00.00 Encounter for general adult medical examination without abnormal findingsComments:Overall doing well Briefly discussed the bug bites which appear unconcerning HM womanDepression screen - negHIV test- declinedCholesterol - UTDPap - UTD - will check with TRAP OPERATOR when next one dueMammo - UTDColon Ca screening - UTDTetanus shot - UTDFlu shot - to be given todayShingrix - wants to be put onlist - discussed high SE slejqsvW73.32 Body mass index (BMI) 32.0-32.9, adult Functional Status Description No Information Available Mental Status Description No Information Available Referrals Description No Information Available
== END 2019-06-16 11:52 | disposition home or self-care (01) ==
LOC: UCEAST 09:59
DX: T17.228A Food in pharynx causing other injury, initial encounter (principal); J45.909 Unspecified asthma, uncomplicated; Z88.1 Allergy status to other antibiotic agents; Z88.8 Allergy status to other drugs, medicaments and biological substances; Z88.2 Allergy status to sulfonamides; X58.XXXA Exposure to other specified factors, initial encounter; Y92.9 Unspecified place or not applicable
CPT/HCPCS: 70360; 71046; 99211; G0463

== ENCOUNTER 2019-09-10 13:10 | Emergency (ER) | payer BC ==
--- OUTSIDE RECORDS SUMMARY | 2019-09-10 13:15 | XMS REPORT | Continuity of Care Document ---
:1960 External Reference #:[id number] Author Name Amy Killian MD Address [address] [place] [address] Problems Active Problems Provider Date Arthritis of first metatarsophalangeal joint of Onset: 12/10/2018 right foot Essential hypertension Onset: 11/01/2018 Serous otitis media Onset: 10/19/2016 Obstructive sleep apnea of adult Onset: 10/18/2016 Hypertrophy of salivary gland Onset: 07/08/2013 Multiple environmental allergies Onset: 11/05/2009 Cervicovaginal cytology: Low grade squamous Celio Ta MD Onset: 07/03/2019 intraepithelial lesion Note: colposcopy December 2018, FU 12 months Asthma without status asthmaticus Celio Ta MD Onset: 07/05/2019 Social History Type Date Description Comments Sex Female Tobacco Use Start: Unknown Patient has never smoked Smoking Status Reviewed: 09/03/19 Patient has never smoked Allergies, Adverse Reactions, Alerts Active Allergies Reaction Severity Comments Date Bactrim rash Mild 03/21/2019 Cephalexin severe rash/joint pains Severe 03/21/2019 Levaquin rash Mild 03/21/2019 Nitrofurantoin, Macrocrystals / tongue numb, dizziness 03/21/2019 Nitrofurantoin, Monohydrate Prednisone 05/16/2019 Medications Active Medications SIG Qnty Indications Ordering Date Provider Augmentin 1 as needed prn 10tabs Celio Ta MD 05/27/2019 500-125mg Oral; One tablet Tablets after intercourse Estrace apply 2g twice 42.5units Aurora 02/10/2019 0.1mg/GM weekly vaginal Karnow, DO Cream Xyzal Allergy 24HR 1 daily Oral 90tabs Unknown 01/28/2019 5mg Tablets Ventolin HFA Inhalation; Take 2 3units Unknown 01/02/2019 puffs every 4-6 108(90Base) mcg/Act hours as necessary Aerosol for shortness of breath Qnasl nasal; place 2 8.7units [facility] 12/11/2018 80mcg/Act sprays in each Karnow, DO Aerosol nostril daily Escitalopram Oxalate Take 1 Tablet By 90tabs [facility] 11/01/2018 Mouth Every Day Karnow, DO 10mg Tablets Levothyroxine Sodium oral; take one 90tabs [facility] 10/11/2017 tablet by mouth Karnow, DO 25mcg Tablets every day Medications Administered in Office Medication SIG Qnty Indications Ordering Provider Date Allergy Injection 2 Or More Unknown 04/28/2015 Injection Allergy Injection 2 Or More Unknown 04/21/2015 Injection Allergy Injection 2 Or More Unknown 04/14/2015 Injection Immunizations CPT Code Status Date Vaccine Lot # [id number] Given 05/16/2019 Flu < 65 years [id number] 18511 Given 04/19/2018 Influenza Virus Vaccine, Quadrivalent, Split Virus, Im Use 0.5ML 35787 Given 04/19/2018 Flu < 65 years 13393 Given 04/19/2018 Influenza Virus Vaccine, Quadrivalent, Split, Preservative Free 29061 Given 04/19/2018 Flumist 11747 Given 04/19/2018 Flu High Dose 56331 Given 04/19/2018 Influenza Virus Vaccine, Split, Preserv Free, Intradermal Use 46271 Given 03/23/2017 Influenza Virus Vaccine, Split, Preserv Free, Intradermal Use 48596 Given 03/23/2017 Flu High Dose 99664 Given 03/23/2017 Flumist 55100 Given 03/23/2017 Influenza Virus Vaccine, Quadrivalent, Split, Preservative Free 75031 Given 03/23/2017 Flu < 65 years 88686 Given 03/23/2017 Influenza Virus Vaccine, Quadrivalent, Split Virus, Im Use 0.5ML 55623 Given 07/19/2015 Influenza Virus Vaccine, Quadrivalent, Split Virus, Im Use 0.5ML 56873 Given 07/19/2015 Flu < 65 years 60000 Given 07/19/2015 Influenza Virus Vaccine, Quadrivalent, Split, Preservative Free 27885 Given 07/19/2015 Flumist 43918 Given 07/19/2015 Flu High Dose 65054 Given 03/26/2013 Influenza Virus Vaccine Split Virus Intramuscular Use 0.5ML 39979 Given 03/26/2013 Flu High Dose 43592 Given 03/26/2013 Flumist 47042 Given 03/26/2013 Influenza Virus Vaccine, Quadrivalent, Split, Preservative Free 25728 Given 03/26/2013 Flu < 65 years 45651 Given 03/26/2013 Influenza Virus Vaccine, Quadrivalent, Split, Im Use 0.25ML 36319 Given 03/26/2013 Influenza Virus Vaccine, Quadrivalent, Split, Im Use 0.25ML 91492 Given 03/26/2013 Influenza Virus Vaccine, Quadrivalent, Split, Im Use 0.25ML 40724 Given 03/26/2013 Influenza Virus Vaccine, Quadrivalent, Split, Im Use 0.25ML 67725 Given 02/16/2012 Tdap - Boostrix/Adacel 88404 Given 02/16/2012 Influenza Virus Vaccine, Quadrivalent, Split, Im Use 0.25ML 40671 Given 02/16/2012 Influenza Virus Vaccine, Quadrivalent, Split, Im Use 0.25ML 22942 Given 02/16/2012 Influenza Virus Vaccine, Quadrivalent, Split, Im Use 0.25ML 00402 Given 02/16/2012 Flu < 65 years 23542 Given 02/16/2012 Influenza Virus Vaccine, Quadrivalent, Split, Preservative Free 66747 Given 02/16/2012 Flumist 42996 Given 02/16/2012 Flu High Dose 27720 Given 02/16/2012 Influenza Virus Vaccine Split Virus Intramuscular Use 0.5ML Vital Signs Date Vital Result Comment 09/03/2019 2:16pm BP Systolic 138 mmHg BP Diastolic 82 mmHg Weight 188.00 lb Heart Rate 76 /min Body Temperature 98.4 F O2 % BldC Oximetry 98 % 05/16/2019 9:17am BP Systolic 118 mmHg BP Diastolic 66 mmHg Height 63.5 inches 5'3.50" Weight 187.00 lb Heart Rate 69 /min Body Temperature 98.0 F O2 % BldC Oximetry 98 % BMI (Body Mass Index) 32.6 kg/m2 Results Description No Information Available Procedures Date Code Description Status 05/16/2019 02671 Brief Emotional/Behav Assessment W/ Scoring Doc Per Completed Standard Inst Medical Devices Description No Information Available Encounters Type Date Location Provider Dx Diagnosis Office Visit 09/03/[address] [facility] Amy Killian MD J06.9 Acute upper 2:15p respiratory infection, unspecified Office Visit 05/16/[address] [facility] Tex Merlos DO Z00.00 Encntr for general 9:15a adult medical exam w/o abnormal findings Z13.31 Encounter for screening for depression Z68.32 Body mass index (BMI) 32.0-32.9, adult Z23 Encounter for immunization Assessments Date Code Description Provider 09/03/2019 J06.9 Acute upper respiratory infection, unspecified Amy Killian MD 05/16/2019 Z00.00 Encounter for general adult medical Aurora Merlos DO examination without abnormal findings 05/16/2019 Z13.31 Encounter for screening for depression Aurora Merlos DO 05/16/2019 Z68.32 Body mass index (BMI) 32.0-32.9, adult Aurora Merlos DO 05/16/2019 Z23 Encounter for immunization Aurora Merlos DO Plan of Treatment Future Appointment(s):11/14/2019 8:45 am - Aurora Merlos DO at [facility] Main - Amy Killian MDJ06.9 Acute upper respiratory infection, unspecified Functional Status Description No Information Available Mental Status Description No Information Available Referrals Description No Information Available
--- OUTSIDE RECORDS SUMMARY | 2019-09-10 13:15 | XMS REPORT | Continuity of Care Document ---
:1960 External Reference #:[id number] Author Name Bo Robertson M.D. (transmitted by agent of provider Louann Ashton) Address [address] [place] [id number] Care Team Providers Name Role Phone Aurora Merlos DO - Family Care Team Information Field Underwriter Medicine Problems Active Problems Provider Date Abnormal results function studies of central Shawn Koenig M.D. Onset: nervous system Social History Type Date Description Comments Sex Unknown Tobacco Use Start: Unknown Never Smoked Cigarettes Tobacco Use Start: Unknown Never Smoked Cigars Tobacco Use Start: Unknown Never Smoked A Pipe Smoking Status Reviewed: 09/08/19 Never Smoked A Pipe Smokeless Tobacco Never Used Smokeless Tobacco ETOH Use Rarely consumes alcohol Tobacco Use Start: Unknown Patient has never smoked Exercise Type/Frequency Exercises regularly Allergies, Adverse Reactions, Alerts Active Allergies Reaction Severity Comments Date Bactrim 07/26/2017 Levaquin 07/26/2017 Cephalosporins 07/26/2017 Macrodantin 07/26/2017 Nitrofurantoin 09/08/2019 Medications Active Medications SIG Qnty Indications Ordering Provider Date Azelastine HCL (Nasal) Use 2 Sprays In Unknown Each Nostril 2 0.15% Solution Times A Day Escitalopram Oxalate Take One Tablet By Unknown 10mg Mouth Every Day Tablets Levothyroxine Sodium Take 1 Tablet By Unknown Mouth Every Day 25mcg Tablets Xyzal Allergy 24HR 1 tab daily po Unknown 5mg Tablets Allergy Shots Once A Week Unknown Albuterol Sulfate 1 unit dose via Unknown nebulizer every 4 (2.5mg/3ML) 0.083% hours as needed Nebulizer Immunizations Description No Information Available Vital Signs Date Vital Result Comment 09/08/2019 9:03am Height 64 inches 5'4" Weight 187.25 lb Heart Rate 80 /min BP Systolic 130 mmHg BP Diastolic 82 mmHg Respiratory Rate 16 /min Body Temperature 100.0 F BMI (Body Mass Index) 32.1 kg/m2 03/20/2019 9:22am Height 64 inches 5'4" Heart Rate 75 /min BP Systolic 122 mmHg BP Diastolic 80 mmHg Respiratory Rate 16 /min Body Temperature 98.6 F Pain Level 0 Results Description No Information Available Procedures Description No Information Available Medical Devices Description No Information Available Encounters Type Date Location Provider Dx Diagnosis Office Visit 03/20/2019 [facility] Gm Costello, M19.172 Post- traumatic 9:30a at [facility] osteoarthritis, left ankle and foot Assessments Date Code Description Provider 09/08/2019 H69.83 Other specified disorders of Eustachian tube, Bo Robertson M.D. bilateral 09/08/2019 H90.3 Sensorineural hearing loss, bilateral Bo Robertson M.D. 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 foot Plan of Treatment Future Appointment(s):10/06/2019 10:45 am - Bo Robertson M.D. at [facility] AT Gzfncvkd78/24/2020 - Bo Robertson M.D.H69.83 Other specified disorders of Eustachian tube, bilateralFollow up:. (Follow up)H90.3 Sensorineural hearing loss, bilateral Functional Status Description No Information Available Mental Status Description No Information Available Referrals Description No Information Available
[2019-09-10 13:34] VITALS: BP 128/70
[2019-09-10] MEDS ORDERED: Acetaminophen TAB* 325 MG PO ONE (15:13)
[2019-09-10] MEDS ORDERED: diPHENhydraMINE PO* 25 MG PO ONE (15:13)
[2019-09-10 15:38] LABS: Influenza A Molecular Negative (Negative); Influenza B Molecular Negative (Negative)
--- NOTE | 2019-09-10 15:41 | UC ---
Throat Pain/Nasal Bobby HPI - HPI Summary HPI Summary: 58-year-old female presenting with sinus congestion and headache 3 weeks but worsening for the past 2 days. Patient states she received antibiotics 2 days ago from her primary care provider. Taking Augmentin for sinusitis. States she also saw her ENT provider 2 days ago and had tubes removed from ears. Patient states since then she "feels like her scalp is swollen and itchy." States it "feels like a headache but not really." States that her had an aneurysm once so this makes her worried for one as well. States she has had sinus issues in the past and that is why her ENT placed ear tubes because he thought it would help her congestion. Patient also states concern for the flu because she thinks she may have been exposed by her who works in a hospital. Notes low grade fever of 100.2 two days ago while at her ENT appointment. Denies fever since. Denies purulent nasal drainage. Denies cough. Denies sore throat. Denies body aches. Also taking OTC decongestant as well but unsure what it is. - History of Current Complaint Chief Complaint: UCGeneralIllness Stated Complaint: SINUS ISSUES Hx Obtained From: Patient Hx Last Menstrual Period: 2011 Pain Intensity: 6 Pain Scale Used: 0-10 Numeric - Allergies/Home Medications Allergies/Adverse Reactions: Allergies Allergy/AdvReac Type Severity Reaction Status Date / Time Cephalosporins Allergy Severe Swelling Verified 09/10/19 13:34 levofloxacin [From Levaquin] Allergy Rash Verified 09/10/19 13:34 nitrofurantoin Allergy Numbness Verified 09/10/19 13:34 And Tingling prednisone Allergy See Comment Verified 09/10/19 13:34 sulfamethoxazole Allergy Rash Verified 09/10/19 13:34 [From Bactrim] trimethoprim [From Bactrim] Allergy Rash Verified 09/10/19 13:34 Home Medications: Home Medications Levothyroxine TAB* [Synthroid 25 MCG TAB*] 25 mcg PO DAILY 10/21/14 [History Confirmed 09/10/19] Albuterol HFA INHALER* [Ventolin HFA Inhaler*] 2 inh INH Q4HR PRN 10/25/14 [ History Confirmed 09/10/19] Levocetirizine Dihydrochloride [Xyzal] 5 mg PO QPM 12/01/17 [History Confirmed 09/10/19] Albuterol 2.5MG/3ML (0.083%)* [Ventolin 2.5 MG/3 ML NEB.ELI*] 2.5 mg INH Q4H PRN #30 neb.eli 12/06/18 [Rx Confirmed 09/10/19] Montelukast Sodium TAB* [Singulair 5 mg TAB*] 5 mg PO DAILY PRN MDD 1 12/06/18 [ History Confirmed 09/10/19] Beclomethasone Dipropionate [Qnasl] 1 inh INH DAILY 05/05/19 [History Confirmed 09/10/19] Escitalopram Oxalate [Lexapro 10 mg] 20 mg PO DAILY 05/05/19 [History Confirmed 09/10/19] Ibuprofen 1 tab PO ONCE PRN 09/10/19 [History Confirmed 09/10/19] estradioL [Estradiol] 1 dose VAGINAL ONCE 09/10/19 [History Confirmed 09/10/19] PMH/Surg Hx/FS Hx/Imm Hx Endocrine History: Hypothyroidism Respiratory History: Asthma - Surgical History Surgical History: Yes Surgery Procedure, Year, and Place: ovary removed d/t cyst. varicose vein surgery on left leg., TONSILLECTOMY, ADENOIDECTOMY, BILAT EAR TUBES 2016 removed 2019, [facility] Other Surgical History: Tonsillectomy, Ovary removal - Family History Known Family History: Positive: Cardiac Disease, Respiratory Disease - mother with COPD, Other - allergies - Social History Alcohol Use: Rare Substance Use Type: None Smoking Status (MU): Never Smoked Tobacco Have You Smoked in the Last Year: No - Immunization History Most Recent Influenza Vaccination: none Review of Systems All Other Systems Reviewed And Are Negative: Yes Constitutional: Positive: Fever - 100.2 Skin: Positive: Other - "swollen itchy feeling of scalp" ENT: Positive: Sinus Congestion, Sinus Pain/Tenderness. Negative: Sore Throat, Ear Ache, Nasal Discharge Respiratory: Positive: Negative Cardiovascular: Positive: Negative Gastrointestinal: Positive: Negative Musculoskeletal: Positive: Negative Neurological/Mental Status: Positive: Headache Physical Exam - Summary Physical Exam Summary: Vital Signs Reviewed: Yes A+Ox3, no distress Eyes: Conjunctiva Clear, PERRLA, EOM intact and full ENT: Hearing grossly normal, TM x 2 clear, right TM with small perforation from where tympanostomy tube was removed, no nasal congestion appreciated, nasal turbinates moist and non edematous, moist, uvula midline, no exudate, no erythema Neck: Positive: Supple Respiratory: Positive: No respiratory distress, No accessory muscle use + CTA throughout no w/r Cardiovascular: RRR nl s1, s2 no m/r Musculoskeletal Exam: HUYNH x 4 without difficulty Neurological: Positive: Alert Psychological: Positive: age appropriate behavior Skin: Positive: no rash, no ecchymosis Vital Signs: Initial Vital Signs Temp 98.3 F 09/10/19 13:30 Pulse 69 09/10/19 13:30 Resp 18 09/10/19 13:30 BP 128/70 09/10/19 13:30 Pulse Ox 99 09/10/19 13:30 Lab Results 09/10/19 Range/Units 15:26 Influenza A (Rapid) Negative (Negative) Influenza B (Rapid) Negative (Negative) Throat Pain/Nasal Course/Dx - Course Course Of Treatment: Negative rapid flu. Instructed patient to continue with antibiotics as prescribed by her PCP. Instructed to add decongestant and nasal spray for symptom relief. Instructed to continue with Tylenol and ibuprofen for relief of headache and sinus pain. Patient received Benadryl here because she states she was itchy. I informed her she may also continue to take Benadryl as directed. Instructed to follow up with PCP if symptoms persist. Instructed to go to ED with any new or worsening symptoms. Patient voiced understanding and agreed with treatment plan. - Differential Dx/Diagnosis Provider Diagnosis: Sinusitis, Headache Discharge ED - Sign-Out/Discharge Documenting (check all that apply): Patient Departure All imaging exams completed and their final reports reviewed: No Studies - Discharge Plan Condition: Stable Disposition: HOME Patient Education Materials: Sinusitis (ED) Referrals: Aurora Merlos DO [Primary Care Provider] - If Needed Additional Instructions: Continue with your antibiotic as prescribed. You may also take an over the counter decongestant and nasal spray for symptom relief. Continue with tylenol and ibuprofen as directed for relief of headache. Follow up with your primary care provider if symptoms worsen or persist. - Billing Disposition and Condition Condition: STABLE Disposition: Home
== END 2019-09-10 15:50 | disposition home or self-care (01) ==
LOC: UCEAST 13:10
DX: J32.9 Chronic sinusitis, unspecified (principal); R51 Headache; E03.9 Hypothyroidism, unspecified; J45.909 Unspecified asthma, uncomplicated; Z88.1 Allergy status to other antibiotic agents; Z88.6 Allergy status to analgesic agent; Z88.2 Allergy status to sulfonamides; Z79.890 Hormone replacement therapy
CPT/HCPCS: 99211; A9270-GY; G0463